=== PATIENT | male | born 1945 | race Caucasian/White ===

== ENCOUNTER 2016-09-22 07:28 | Day surgery (SDC) | payer MEDICARE, OTHER ==
[~2016-09-22] VITALS: Ht 188 cm; Wt 93.4 kg
[~2016-09-22 07:28] MED LIST: ALBU8.5H2 INHALATION; ASPI-973 PO; BENZ100C8 PO; CARV12.52 PO; CHOL3000 PO; CYAN500T53 SL; FUR20 PO; LISI-571 PO; MULT-1018 PO; RITUX IV; SPIR25TA PO; Sodium Chloride LOK Flush 10 mL Syringe IV PRN; fentaNYL-PF 50 mCg/mL 2 mL Inj IVPUSH PRN
[2016-09-22 08:02] VITALS: BP 109/66; PULSE 66; RESP 17; O2SAT 98
[2016-09-22] MEDS: 0.9% Sodium Chloride 1,000 ML IV SCH ×2 (08:53→09:12)
[2016-09-22 09:27] VITALS: BP 104/57; PULSE 61; RESP 16; O2SAT 97
[2016-09-22 09:37] VITALS: BP 103/60; PULSE 59; RESP 16; O2SAT 97
[2016-09-22 09:42] VITALS: BP 104/66; PULSE 62; RESP 16; O2SAT 98
--- NOTE | 2016-09-22 10:21 | ENDO ---
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 PROCEDURE: 1. Colonoscopy. 2. Terminal ileal intubation. 3. Biopsies of terminal ileum. SURGEON: Ethan Greer MD. INDICATIONS: The patient is a 71-year-old man who last year had terminal ileal intussusception. Biopsies of the terminal ileum revealed mantle cell lymphoma. He has been undergoing treatment. The intussusception has resolved but he continues to have some thickening of the terminal ileum, as well as an elevated SUV on his PET scan, although it is significantly reduced from his initial PET scan. After discussing options with the patient, it was elected to proceed with a colonoscopy with plans to intubate the terminal ileum. FINDINGS: The scope was advanced to the cecum and into the terminal ileum. Gaining access to the terminal ileum was difficult. One side of the terminal ileum showed edematous mucosa. There was some fibrin on the mucosa suggesting some ulceration or at least inflammation. Visualization of that area was limited. I did do biopsies. Keeping the scope within the terminal ileum was difficult. I was hoping to get 8-10 biopsies. The scope popped back into the colon after obtaining only four biopsies, and I was unable to reintubate it. The colon, including retroflexed views of the rectum, was normal. DESCRIPTION OF PROCEDURE: The procedure and sedation plan was discussed with the patient and nursing staff, and a procedural time-out was held. He received 4 mg of Versed and 75 mcg of fentanyl. After the scope reached the cecum, the total withdrawal time was 20 minutes 44 seconds. The terminal ileum was intubated and biopsies obtained with results as discussed above. As stated above, I was attempting to get 8-10 biopsies but after four biopsies the scope popped back into the cecum and I could not reintubate the terminal ileum. The scope was then withdrawn, with the colon as described above, and retroflexed views of the rectum were obtained. There were no apparent complications. There was no bleeding. IMPRESSION: 1. His terminal ileum is not normal. 2. There were signs of inflammation. 3. The biopsies may only show an inflammatory response.
--- NOTE | 2016-09-27 08:18 | PATH ---
SURGICAL PATHOLOGY Attending Physician:Saba Roque CASE STATUS: Signed Out PATIENT NAME: MICHELLE KAPADIA PID: [id number] : 1945 DATE COLLECTED:09/22/2016 17:29 SPECIMEN: Ileum, Biopsy CLINICAL HISTORY: A: TERMINAL ILEUM BIOPSY FINAL DIAGNOSIS: Terminal Ileum, Biopsy: Mantle cell lymphoma with a high proliferative index (50%). ICD10: C85.9 GROSS DESCRIPTION: The specimen is received in one formalin filled container labeled with the patient's name, sublabeled "terminal ileum" and consists of 4 portions of tissue which aggregate to 0.4 x 0.4 x 0.2 CM. The specimen is entirely submitted in one cassette. 09/22/2016 [facility] MICRO DESCRIPTION: Sections from the terminal ileum show ulcerated mucosa with an atypical diffuse infiltrate of lymphocytes which are of intermediate size and which are associated with frequent mitotic figures. Given the patient's history of mantle cell lymphoma, immunohistochemistry is performed in order to confirm the morphologic impression of persistent/recurrent mantle cell lymphoma. IMMUNOHISTOCHEMISTRY: CD5:Dim positivity on most atypical lymphocytes. CD3:Negative in atypical lymphocytes. Cyclin D1:Uniformly positive in atypical lymphocytes: Ki-67: 50% positive labeling index. CD20:`Variably positive staining in most atypical lymphocytes. CD79A: Uniformly positive in atypical lymphocytes. ICD-9 CODES: CPT CODES: 1: 99022, 90389, 95310, 72530, 98542, 87075, 22807 Electronically Signed Out Gatito Carvalho MD, PhD [facility] Pathology [facility] [address], [place] [address] Technical component performed at [facility], [facility] [address], [place], [address]
== END 2016-09-22 23:59 | disposition home or self-care (01) ==
LOC: END 07:28
PROVIDERS: ATTEND Surgery
DX: C83.13 Mantle cell lymphoma, intra-abdominal lymph nodes (principal); I50.9 Heart failure, unspecified; I42.9 Cardiomyopathy, unspecified; I10 Essential (primary) hypertension; D69.6 Thrombocytopenia, unspecified
CPT/HCPCS: 45380; 88305; 88341; 88342; 88360; 99153; G0500; J2250; J7030

== ENCOUNTER 2016-12-26 13:21 | Inpatient (IN) | payer MEDICARE, OTHER ==
[~2016-12-26] VITALS: Ht 188 cm; Wt 97.5 kg
[~2016-12-26 13:21] MED LIST changes: -ALBU8.5H2 INHALATION; -BENZ100C8 PO; -LISI-571 PO; -Sodium Chloride LOK Flush 10 mL Syringe IV PRN; -fentaNYL-PF 50 mCg/mL 2 mL Inj IVPUSH PRN
[2016-12-26 13:25] VITALS: BP 125/80; PULSE 94; RESP 16; O2SAT 98
--- NOTE | 2016-12-26 13:58 | ED.REPORT ---
HPI-Abd Pain M 40 and Over Date of Service Dec 26, 2016 ED Provider: Pernell Florence MD Pt is a 71 y/o male w/ a hx of Non-Hodgkin's lymphoma, mantle cell lymphoma, chronic intussusception, chemotherapy induced nonischemic cardiomyopathy, HTN, presenting to the ED c/o abdominal pain and distention onset 2 weeks ago. Pt c/ o associated anorexia, mucousy diarrhea, reflux. Pt denies fever, vomiting. He has never required paracentesis in the past. He called his oncologist Dr. Barreto 's office today who recommended he be seen in the ED for evaluation and likely admission. Dr. Barreto was planning on seeing the patient while he was in the ED. CT oral contrast of chest/abdomen/pelvis taken 12/22/16 was interpreted as below: IMPRESSION: 1. Marked interval progression of disease compared to 12.5.16. 2. Several new right lung masses, presumably reflecting pulmonary lymphoma. 3. Multiple new peritoneal masses, as well as peritoneal nodularity and ascites , indicating peritoneal carcinomatosis. 4. Intrahepatic masses are present, consistent with lymphoma. Nursing Notes Stated Complaint: ABDOMINAL PAIN Chief Complaint: General Complaint Nursing Notes Reviewed: Yes Allergies: Coded Allergies: No Known Drug Allergies (Verified Allergy, Unknown, 12/26/16) Scheduled Aspirin (Aspirin) 81 Mg Tablet 81 MG PO BIDWM Carvedilol (Carvedilol) 12.5 Mg Tablet 12.5 MG PO BID Cholecalciferol (Vitamin D3) (Vitamin D3) 3,000 Unit Tablet 3,000 UNIT PO HS Cyanocobalamin (Vitamin B-12) (Vitamin B-12) 500 Mcg Tab.subl 500 MCG SL DAILY Furosemide (Furosemide) 20 Mg Tab 20 MG PO DAILY Multivitamin (Multi Vitamin Daily) 1 Each Tablet 1 EACH PO HS Rituximab (Rituxan) 100 Mg/10 Ml Vial 100 MG IV EVERY 2 MONTHS Spironolactone (Aldactone) 25 Mg Tablet 12.5 MG PO DAILY General Time Seen by MD: 13:50 Chief Complaint Abdominal pain Hx Obtained From: Patient Arrived By: Walk-in Sudden in Onset?: No Onset Occurred: More than a week ago... 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 Physical Exam Initial Vital Signs Vital Signs (First) Date Time Temp Pulse Resp B/P Pulse Ox O2 Delivery O2 Flow Rate FiO2 12/26/16 13:25 36.0 94 16 125/80 98 Room Air Initial VS: Reviewed, Vital signs normal Head / Eyes: Atraumatic, Normocephalic, PERRL ENT: Mucous membranes moist, Conjunctiva normal, No scleral icterus Neck: Supple, Full range of motion Neurologic: Alert, Oriented, Nonfocal Psychiatric: Mood/affect normal, Behavior normal, Normal thought content General/Constitutional: Awake, Alert, No acute distress, Cooperative Appearance / Presentation: Positive: Cachectic Chronically ill-appearing cancer patient Respiratory / Chest: Atraumatic, Breath sounds NL, Breath sounds = bilat, No respiratory distress, No rales, No rhonchi, No wheezing, No retractions, No stridor, No chest tenderness, No chest wall deformity, No crepitus Cardiovascular: Heart rate NL, Regular rhythm, Heart sounds NL, No gallop, No murmurs, No rubs, Cap refill not delayed, Peripheral circulation NL Abdomen: Atraumatic, Soft, Non-tender, No guarding Protuberant abdomen Back: Full range of motion, Painless range of motion Skin: No rash, Warm Waxy appearing skin Interpretation & Diagnostics Interpretation & Diagnostics: US abdomen: IMPRESSION: Several, superficial inferior pelvic peritoneal masses, several which are amenable to sonographically directed percutaneous biopsy. Dictated by: Isra LOBATO Interpreted: Rubin Garza MD on 12/26/2016 at 16:08 Transcribed by: SAMANTHA on 12/26/2016 at 16:09 Lab Results Interpretation Result Diagram: 12/26/16 1435 12/26/16 1435 Test 12/26/16 14:35 12/26/16 14:40 12/26/16 16:19 White Blood Count 16.2th/mm3 (3.8-10.1) Red Blood Count 3.67mil/mm3 (4.40-5.80) Hemoglobin 10.1g/dL (13.8-17.2) Hematocrit 32.8% (41.0-50.0) Mean Corpuscular Volume 89.4fL (81-100) Mean Corpuscular Hemoglobin 27.5pg (27.0-35.0) Mean Corpuscular Hemoglobin Concent 30.8% (32.0-37.0) Red Cell Distribution Width 18.7% (12.3-15.4) Platelet Count 635bil/L (150-400) Neutrophils (%) (Auto) 78% (40-74) Lymphocytes (%) (Auto) 7% (14-46) Monocytes (%) (Auto) 14% (4-12) Eosinophils (%) (Auto) 0% (0-5) Basophils (%) (Auto) 0% (0-3) Band Neutrophils % 1% (1-5) Sodium Level 135mEq/L (134-144) Potassium Level 4.7mEq/L (3.5-5.2) Chloride Level 98mEq/L (97-108) Carbon Dioxide Level 18mmol/L (18-29) Blood Urea Nitrogen 41mg/dL (8-27) Creatinine 1.97mg/dL (0.76-1.27) Estimat Glomerular Filtration Rate 36mL/min (>59) Glucose Level 99mg/dL (60-99) Lactic Acid Level 1.3mmol/L (0.4-2.0) Calcium Level 12.9mg/dL (8.5-10.1) Total Bilirubin 0.4mg/dL (0.0-1.2) Aspartate Amino Transf (AST/SGOT) 94U/L (0-50) Alanine Aminotransferase (ALT/SGPT) 15U/L (0-44) Alkaline Phosphatase 80U/L (25-160) Troponin T 0.013ug/L (0.0-0.011) Total Protein 5.2g/dL (6.4-8.4) Albumin 3.1g/dL (3.4-5.0) Prothrombin Time 11.3sec (8.1-12.5) Prothromb Time International Ratio 1.05ratio Hold Ko Top Tube Received (Received) ECG Interpretation ECG Interpretation: Sinus rhythm rate 90 LBBB Time: 15:43 Interpreted by: ED physician Normal ECG Interpretation: No acute ischemic changes X-Ray Chest Interpretation Chest Xray Interpretation: IMPRESSION: Linear right basilar opacities, suggestive of atelectasis and trace effusion. Dictated by: Mya Monroe M.D. on 12/26/2016 at 16:31 Approved by: Mya Monroe M.D. on 12/26/2016 at 16:32 View: Portable, 1 view Interpretation / Wet Read by: Interpret - Radiologist Re-Eval/Medical Decision Med Decision/Clinical Course I opted not to be more aggressive with the fluids because of his worsening renal insufficiency. I decided to await input from Dr. Barreto regarding hypercalcemia management. Source of Hx: Old records Time of Eval: 15:46 Re-Evaluation/Progress Note: Pt rechecked. Informed pt of need for admission for further evaluation. Pt understands and agrees with need for admission. All questions addressed. Consultation #1: Referral / Consult Name: Kleber Chew MD Call Returned at: 14:30 Therapist'S Assistant: Will see patient, Agrees with eval, Agrees with plan Note: Will see patient while admitted. Consultation #2: Referral / Consult Name: Matt Mann MD Consulted With: Hospitalist Call Returned at: 16:38 Therapist'S Assistant: Will see patient, Agrees with eval, Agrees with plan, Accepts admit Counseled Regarding: Diagnosis, Lab results, Need for admission Discharge & Departure Primary Impression: Non-Hodgkin lymphoma Non-Hodgkin lymphoma type: unspecified type Lymphoma site: unspecified region Qualified Code: C85.90 - Non-Hodgkin lymphoma, unspecified, unspecified site Additional Impressions: Acute renal insufficiency Abdominal mass Abdominal location: unspecified location Qualified Code: R19.00 - Intra- abdominal and pelvic swelling, mass and lump, unspecified site Hypercalcemia Abdominal pain Abdominal location: unspecified location Qualified Code: R10.9 - Unspecified abdominal pain Disposition: ADMITTED TO HOSPITAL Vital Signs - All Vital Signs Date Time Temp Pulse Resp B/P Pulse Ox O2 Delivery O2 Flow Rate FiO2 12/26/16 15:59 90 18 122/73 97 Room Air 12/26/16 13:25 36.0 94 16 125/80 98 Room Air )( All Prior VS Reviewed: Yes Condition: Stable Referrals: Govind Olmedo MD (PCP) Scribe Attestation Portions of this note were transcribed by Pavel Cervantes. I, Dr. Florence personally performed the history, physical exam and medical decision-making; I reviewed and confirmed the accuracy of the information in the transcribed note. Signed by Luis Armando Blount, 12/26/16 - 1500 copies to: Govind Olmedo MD, Kirk H MD Dec 26, 2016 13:58 PAVEL CERVANTES Dec 26, 2016 14:08
[2016-12-26 14:46] LABS: Mean Corpuscular Hemoglobin 27.5 pg (27.0-35.0); Mean Corpuscular Volume 89.4 fL (81-100); Platelet Count 635 bil/L (150-400)
[2016-12-26 15:01] LABS: INR 1.05 ratio
[2016-12-26 15:03] LABS: BASOPHILS % (AUTO) 0 % (0-3); EOSINOPHILS % (AUTO) 0 % (0-5); MONOCYTES % (AUTO) 14 % (4-12); NEUTROPHILS % (AUTO) 78 % (40-74)
[2016-12-26 15:59] VITALS: BP 122/73; PULSE 90; RESP 18; O2SAT 97
--- NOTE | 2016-12-26 16:10 | DRSVH ---
PROCEDURE: US ABDOMEN, LIMITED ([id number]) INDICATIONS: abd pain, distention, new mass TECHNIQUE: Real-time focused scanning was performed of the abdomen, with image documentation. COMPARISON: [facility], CT, CT CHEST ABD PELVIS WO CON, 12/22/2016, 8:09. FINDINGS: Ultiple solid mass is seen within the inferior pelvis as was noted on recent CT scan, sever al which are amenable to sonographically directed percutaneous biopsy. Mild amount of ascites is red emonstrated. IMPRESSION: Several, superficial inferior pelvic peritoneal masses, several which are amenable to son ographically directed percutaneous biopsy. Dictated by: Isra LOBATO Interpreted: Rubin Garza MD on 12/26/2016 at 16:08 Transcribed by: SAMANTHA on 12/26/2016 at 16:09 Approved by: Rubin Garza M.D. on 12/26/2016 at 17:08
--- NOTE | 2016-12-26 16:34 | DRSVH ---
PROCEDURE: X-RAY CHEST ONE VIEW, PORTABLE ([id number]) INDICATIONS: SHORTNESS OF BREATH TECHNIQUE: One view of the chest was acquired. COMPARISON: [facility], CR, XR CHEST 2VW, 07/07/2016, 11:03. FINDINGS: Surgical changes and devices: Right port is present. Lungs and pleura: No pleural effusions or pneumothorax. Linear opacities are present in the right b ase, with trace effusion. Mediastinum: Mediastinal contours appear normal. Heart size is normal. Bones and chest wall: No suspicious bony lesions. Overlying soft tissues appear unremarkable. IMPRESSION: Linear right basilar opacities, suggestive of atelectasis and trace effusion. Dictated by: Mya Monroe M.D. on 12/26/2016 at 16:31 Approved by: Mya Monroe M.D. on 12/26/2016 at 16:32
[2016-12-26] MEDS ORDERED: Ondansetron 2 mg/mL 2 mL Inj IVPUSH PRN (16:50)
[2016-12-26] MEDS ORDERED: Alum-Mag Hydrox-Simeth 30 mL Suspension PO PRN (16:50)
[2016-12-26] MEDS ORDERED: Polyethylene Glycol (PEG) 17 Gm Powder PO PRN (17:20)
[2016-12-26] MEDS: 0.9% Sodium Chloride 1,000 ML IV SCH ×2 (17:27→19:55)
[2016-12-26] MEDS ORDERED: ZOLEDRONIC ACID IV ONE (17:45)
[2016-12-26] MEDS ORDERED: SODIUM CHLORIDE 0.9% IV ONE (17:45)
[2016-12-26] MEDS ORDERED: IVIG IV (17:55)
--- NOTE | 2016-12-26 17:56 | NUR ---
admit pt is brought to the [facility] via [facility] from the ED. Pt was able to transfer himself into the hospital bed. pt denies pain/distress and SOB. Admit nurse going over medications. Tele started
[2016-12-26 18:02] VITALS: PULSE 91
[2016-12-26] MEDS ORDERED: 0.9% Sodium Chloride 1,000 ML IV ONE (18:10)
--- NOTE | 2016-12-26 18:20 | PCM.HPMED ---
Subjective Date of Service Dec 26, 2016 Primary Provider: Admitting Physician: Matt Mann MD Primary Care Physician: Govind Olmedo MD Attending Physician: Matt Mann MD Admit Status: From the Emergency Department, Admit to Blue Team Chief Complaint: Progressive generalized weakness/3 weeks Progressive abdominal distention/2 weeks History of Present Illness: Dorian is unfortunate 71-year-old gentleman with past medical history of atypical lymphoblastic leukemia diagnosed in 1999 and underwent R-CHOP chemotherapy and went into remission with subsequent diagnosis of chemotherapy related non ischemic cardiomyopathy with ejection fraction of 35-40%. 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 In 2015 he presented with intussusception and was diagnosed with mantle cell lymphoma involving terminal ileum. He was getting chemotherapy with Dr. Barreto and responding. He has been progressively feeling fatigued/generalized weakness for the last 3 weeks. He also noted that he is having progressive abdominal distention for the last 2 weeks. He was evaluated by Dr. Barreto and on repeat imaging was found to have dramatic deterioration with many large new masses in the abdominal cavity; one being about 9 cm in size in the central anterior pelvis; another one in the higher right hemipelvis; and some retroperitoneal nodes and thickening of the bowel as well as new lung mass in the right hilar area.He also was noted to have progressively worsening SHANNAN and hypercalcemia. He was given IV fluids at cancer Center and outpatient biopsy of new masses was being arranged . He continued to have the above symptoms and worsening SHANNAN and hypercalcemia which prompted referral to ED Denies fever. Denies cough ED course: Unremarkable vitals, cachectic, distended abdomen, WBC 16.2, hemoglobin 10.1, sodium 135, K4.7, bicarbonate 18, creatinine 1.97, no history of ckd, calcium 12.9, albumin 3.1, corrected calcium 13.6. IV fluid normal saline at 150 mL/h started. Bolus avoided due to history of CHF. I spoke with Dr. Barreto , added uric acid due to the concern of TLs and is elevated at 14.3. Started on allopurinol and Zometa. Gave bolus of 1 L normal saline of note, patient's son Willie had vasovagal syncope when I and patient discussed about CODE STATUS. Patient states this has happened before. Review of Systems: Comprehensive review of systems performed, pertinent positives and negatives included in history of present illness Allergies Coded Allergies: No Known Drug Allergies (Verified Allergy, Unknown, 12/26/16) Home Medications Aspirin (Aspirin) 81 Mg Tablet 81 MG PO BIDWM Carvedilol (Carvedilol) 12.5 Mg Tablet 12.5 MG PO BID Cholecalciferol (Vitamin D3) (Vitamin D3) 3,000 Unit Tablet 3,000 UNIT PO HS Cyanocobalamin (Vitamin B-12) (Vitamin B-12) 500 Mcg Tab.subl 500 MCG SL DAILY Furosemide (Furosemide) 20 Mg Tab 20 MG PO DAILY Multivitamin (Multi Vitamin Daily) 1 Each Tablet 1 EACH PO HS Rituximab (Rituxan) 100 Mg/10 Ml Vial 100 MG IV EVERY 2 MONTHS Spironolactone (Aldactone) 25 Mg Tablet 12.5 MG PO DAILY PMH Atypical lymphoblastic leukemia in 1999, recurrence in 2011 mantle cell lymphoma of terminal ileum 2015 nonischemic cardiomyopathy due to chemotherapy Hypertension JAk2 negative essential thrombocytosis Surgical History Right knee replacement Port insertion Rhinoplasty Family History Mother at age 58, she has history intracranial bleeding Father at age 80 due to emphysema Paternal uncle has history of leukemia Social History Hx Alcohol Use: No Hx Substance Use: No Hx Tobacco Use: No Smoking Status: Never Smoker Exam Vital Signs Vital Sign - Last Date Time Temp Pulse Resp B/P Pulse Ox O2 Delivery O2 Flow Rate FiO2 12/26/16 18:02 91 12/26/16 15:59 18 122/73 97 Room Air 12/26/16 13:25 36.0 Exam Gen. Cachectic patient is lying comfortably in hospital bed HEENT: Dry buccal mucosa, Head is normocephalic atraumatic, Pupils equal and reactive, extraocular movements intact, Lungs clear to auscultation bilaterally Heart regular rate and rhythm without murmurs gallops or rubs Abdomen distended with irregular feeling masses Extremities pulses are present dorsalis pedis posterior tibialis and radial. tSkin is warm and dry there are no rashes, Psych alert and oriented to person place and time Neuro cranial nerves II through XII are grossly intact Lymph: There is no lymphadenopathy appreciated in the cervical supra infraclavicular regions : no gamez Lab and Diagnostics Result Diagram: 12/26/16 1435 12/26/16 1435 X-Rays, CTs and MRIs PROCEDURE: CT CHEST, ABDOMEN AND PELVIS WITHOUT CONTRAST ([id number]) INDICATIONS: LYMPHOMA, ABDOMINAL PAIN IMPRESSION: 1. Marked interval progression of disease compared to 12.5.16. 2. Several new right lung masses, presumably reflecting pulmonary lymphoma. 3. Multiple new peritoneal masses, as well as peritoneal nodularity and ascites , indicating peritoneal carcinomatosis. 4. Intrahepatic masses are present, consistent with lymphoma. Dictated by: Kayla Bartholomew M.D. on 12/22/2016 at 9:50 Assessment & Plan Dorian is unfortunate 71-year-old gentleman with past medical history of a typical lymphoblastic leukemia,mantle cell lymphoma of terminal ileum , nonischemic cardiomyopathy due to chemotherapy.Hypertension,JAk2 negative essential thrombocytosis # Acute kidney failure -Due to hypercalcemia of malignancy and suspected TLS -Bolus 1 L normal saline then 150ml/h -Keep home Lasix 20 mg, hold Aldactone -zometa 3mg x1 -f/u CMP in am -allopurinol 300mg bid -Nephrology consult in am -Discussed with oncology # Acute hypercalcemia -Management as above # Acute TLS -Management as above # Rapidly progressing lymphoma, suspected transformation -Dr Barreto will arrange biopsy of pelvic mass on current admission -Chemotherapy on hold # JAK2 essential thrombocytosis -Continue aspirin 81 mg by mouth twice a day # nonischemic cardiomyopathy due to chemotherapy -EF 35-40% -will watch out for fluid overload -Continue carvedilol and Lasix, hold Aldactone -BNP 1300 Patient admitted under inpatient status with expected length of stay > 2 midnights for severity of present symptoms, complexities of treatment plan and risk for adverse events Full code,names his son Willie as POA ,tel [phone] Time spent 70 minutes copies to: Govind Olmedo MD; Kleber Chew MD, Melaku MD Dec 26, 2016 18:20
[2016-12-26 19:21] VITALS: BP 131/76; PULSE 92; RESP 20; O2SAT 95
--- NOTE | 2016-12-26 19:36 | CCS NOTE ---
[facility] [address] [place] [id number] MEDICAL ONCOLOGY OFFICE NOTE PATIENT: MICHELLE KAPADIA : 1945 MR#: [id number] DATE: 12/26/2016 JOB ID: [id number] DATE: 12/26/2016 HISTORY OF PRESENT ILLNESS: The patient is a 71-year-old gentleman whom I saw on Monday with relapsed likely lymphoma with multiple new masses in his abdomen and is in process of workup with an ultrasound-guided biopsy that was being planned for this week. He was having increasing worsening of renal function and hypercalcemia most likely due to malignancy. He has a history of previous lymphoma. Details are summarized in my office note of December 23, 2016. He was supposed to come back today for additional evaluation of his lab studies, but he did not show up. He was contacted and was very weak and he was advised to come to the ED and call 911. I have spoken with the ED physician, and the patient had abdominal pain in the mid to lower abdomen likely due to the mass lesion seen on the CT scan of December 23. Of note, the CT scan was intentionally done without IV contrast since his creatinine was rising. He is afebrile but appears very weak. O2 sat 97%. Pale. Blood pressure 122/73. Abdomen is distended but is not rigid. Trace ankle edema. LABORATORIES: Show a creatinine of 1.97 increased from 1.65 on Monday and 1.42 on December 21. BUN is increasing as well with a BUN/creatinine ratio of 2. Calcium had further increased to 12.9 with albumin level of 3.1 and therefore his corrected calcium is probably around 13.5. ProBNP is 1300. 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 He has been on maintenance therapy with Velcade and rituximab, but has been noticing a severe deterioration of his functional status and worsening abdominal pain, increasing hypercalcemia and renal dysfunction over the past two weeks. Urgent CT scan of last , December 22, showed a large number of new masses as discussed in my office note of December 23. He is being admitted to manage his electrolyte and kidney abnormalities and further expedite the biopsy. He had an ultrasound that documented that this anterior abdominal mass in the central pelvis is easily visible on ultrasound and could be percutaneously biopsied which was planned for this week. I spoke with the hospitalist team and recommended that the patient be treated with one dose of Zometa at the reduced dose of 3 mg IV over 30 minutes to treat his hypercalcemia of malignancy. In addition, continuous hydration and check of uric acid to rule out tumor lysis. I would appreciate to obtain the ultrasound-guided percutaneous biopsy in the next day or two while he is in the hospital to expedite the diagnosis. I am concerned that he might have a transformation to an aggressive lymphoma given the rapidity of change. Allopurinol can be started empirically at 300 mg daily after uric acid has been checked and if it was elevated. I spoke also with his son. He is planned to be switched to next line of therapy with the new oral agent, ibrutinib, and the prescription has been already sent to his specialty pharmacy for preauthorization through his insurance.
[2016-12-26] MEDS: Alum-Mag Hydrox-Simeth 30 mL Suspension PO PRN (19:54)
[2016-12-26 20:00] VITALS: PULSE 96
[2016-12-26] MEDS: Ondansetron 2 mg/mL 2 mL Inj IVPUSH PRN (20:04)
[2016-12-27] VITALS (17 sets, daily range): BP systolic 103–138; BP diastolic 65–95; PULSE 20–95; RESP 18–21; O2SAT 94–96
[2016-12-27 00:09] LABS: APPEARANCE,URINE CLEAR (CLEAR,HAZY); COLOR,URINE DARK YELLOW (YELLOW)
[2016-12-27 00:10] LABS: ICTOTEST,URINE POSITIVE (Negative); OCCULT BLOOD,URINE NEGATIVE (NEGATIVE); UROBILINOGEN,URINE NORMAL (NORMAL)
[2016-12-27] MEDS: 0.9% Sodium Chloride 1,000 ML IV SCH (02:29)
[2016-12-27] MEDS: Alum-Mag Hydrox-Simeth 30 mL Suspension PO PRN (02:35)
--- NOTE | 2016-12-27 05:57 | NUR ---
NOC PT alert and oriented. [place] in R ear. V/S WNL. PT abdomen is quite distended with hypo BS noted. PT had one episode of emesis that was light brown in color. THere was no actual nausea associated with it. PT has not been able to tolerate fluids as it causes him heartburn and upper gi pain each time. He is able to tolerate IV fluids. PT only voided once. URine isak and concentrated. R port is accessed and NS infusing at 150ml/h. PT has not ambulated as he reports that he is very weak. Declines any pain meds and has taken only antacids with some relief. PT in NSR with IVCD. PT noted to be a little dyspneic while trying to lay in bed due to the size of his abdomen. Will CTM.
[2016-12-27 06:03] LABS: Mean Corpuscular Hemoglobin 27.7 pg (27.0-35.0); Mean Corpuscular Volume 90.8 fL (81-100); Platelet Count 509 bil/L (150-400)
[2016-12-27 06:20] LABS: BASOPHILS % (AUTO) 0 % (0-3); EOSINOPHILS % (AUTO) 0 % (0-5); MONOCYTES % (AUTO) 15 % (4-12); NEUTROPHILS % (AUTO) 79 % (40-74)
[2016-12-27 06:31] LABS: Magnesium 2.3 mg/dL (1.6-2.6); Phosphorus 4.7 mg/dL (2.5-4.9)
[2016-12-27] MEDS ORDERED: 0.9% Sodium Chloride 1,000 ML IV ONE (07:40)
--- NOTE | 2016-12-27 10:10 | NUR ---
Pt off floor to [facility] for US guided Biopsy at 1010. Access Hep locked per IV therapy, tele notified.
[2016-12-27] MEDS ORDERED: HepLOK Flush 100 unit/mL 5 mL Inj IVFLUSH PRN (10:15)
[2016-12-27] MEDS: 0.9% Sodium Chloride 250 ML IV SCH (10:15)
[2016-12-27] MEDS ORDERED: Sodium Chloride LOK Flush 10 mL Syringe IVFLUSH PRN ×2 (10:15)
--- NOTE | 2016-12-27 10:38 | CONS ---
[address] [address] CONSULTATION REPORT PATIENT: MICHELLE KAPADIA : 1945 MR#: [id number] ADMIT: 12/26/2016 JOB ID: [id number] CORRECTED REPORT: DATE OF SERVICE: 12/27/2016 HISTORY: The patient is a rather unfortunate, 71-year-old, white male, who was admitted to [facility] for acute kidney injury, hypercalcemia, and hyperuricemia. Renal consultation is being sought for further management and evaluation of his acute kidney injury. The patient has an extremely complicated hematological history, including two separate types of lymphomas, along with monoclonal gammopathy. He has undergone several chemotherapy rounds. However, has not had any chemotherapy in about a year. In discussing the case with Dr. Barreto, he states that he was doing well until approximately three weeks ago when he began to have increasing abdominal girth, general malaise, and increasing BUN and creatinine. He underwent a noncontrast CT last week, and was found to have diffuse tumor growth throughout his abdomen and in his lungs. He was admitted to [facility] yesterday and, at the time of admission, was found to have a sodium of 135, potassium 4.7, chloride 98, bicarb 20. BUN and creatinine were 41 and 1.97. His calcium was 12.9, with uric acid of 14.1. He was initially treated with IV fluids, along with intravenous furosemide. Unfortunately, his creatinine increased today to a level of 2.48. His calcium is at 12.2 today and his uric acid has come down a bit at 13.3. His blood pressures in the last 24 hours have been in the low 100-120 range. He is making some urine. I reviewed the renal ultrasound, and he has a distended bladder with approximately 290 mL of urine. There is no evidence of a hydronephrosis. He denies a history of any prior renal problems. There is no history of any prior hematuria, proteinuria, recurrent urinary tract infections, or recent use of nonsteroidal anti-inflammatories. There is no history of diabetes. He does have a history of cardiomyopathy and chronic congestive heart failure. PAST MEDICAL HISTORY: Is significant for mantle cell lymphoma of the terminal ileum, for which he developed an intussusception which was treated with chemotherapy, with resolution. He also has a history of atypical lymphoblastic leukemia dating back to 1999, with recurrence in 2012. He also has a history of nonischemic cardiomyopathy secondary to chemotherapy. There is a history of hypertension. He also has a history of a JAK2 essential thrombocytosis. PAST SURGICAL HISTORY: Significant for bilateral knee replacement, rhinoseptoplasty, and insertion of a chemotherapy port. ALLERGIES: He is not allergic to any food or any medication. MEDICATIONS: At the time of admission, include: Aspirin, carvedilol, cholecalciferol, furosemide, vitamins, rituximab, and spironolactone. SOCIAL HISTORY: He denies use of alcohol, tobacco, or illicit drugs. He states prior to three weeks ago he was in good health and able to perform his activities of daily living. FAMILY HISTORY: Remarkable for an intracranial hemorrhage, emphysema, and an uncle with lymphoma. REVIEW OF SYSTEMS: Otherwise, he denies any recent chest pain, shortness of breath, cough, but has had some nausea and vomiting. PHYSICAL EXAMINATION: Revealed a pale, somewhat cachectic-appearing, 71-year-old, white male, who was alert and oriented x3, in no distress at time of my evaluation. HEENT examination is remarkable for pale sclerae and bitemporal wasting. Neck is supple without adenopathy, thyromegaly or jugular venous distention. Lungs showed some somewhat diminished breath sounds bilaterally, but otherwise were clear. Heart was regular in rhythm with a soft systolic murmur. Abdomen was moderately distended, with tympany noted and free fluid wave was also noted. His abdomen was non-tense and did not show any evidence of any tenderness, rebound, guarding, masses or hepatosplenomegaly. Extremities did not show any evidence of any clubbing, cyanosis, or edema. Skin turgor is good. There is no evidence of any rashes. LABORATORY EXAMINATION: As noted above. This morning, his sodium is 140, potassium 4.8, chloride of 104, bicarb of 18, BUN and creatinine were 48 and 2.48. Uric acid this morning was 13.3. Calcium was 12.2. Phosphorus is 4.7, albumin was 2.9, and his liver function study was remarkable only for an AST which is elevated at 87. Urinalysis showed a specific gravity of 1.025, pH was 5, bilirubin was small, and microscopic was unremarkable. This morning, his white count is 16,000, hemoglobin 9.0, hematocrit 29.5, red cell indices were normal. Platelet count was mildly elevated at 509, and differential showed 79 segs with 1 metamyelocyte. IMPRESSION: 1. Acute kidney injury secondary to tumor lysis syndrome. 2. Dehydration. 3. Hypercalcemia. 4. Hyperuricemia. 5. Metabolic acidosis. RECOMMENDATION: I would like to review his ultrasound with the radiologist and see if we need to do a paracentesis. I would also recommend putting a Barcenas catheter in him to decompress his bladder. I would also like to change his maintenance IV fluid to half-normal saline with 1 amp of sodium bicarbonate to run at 70 mL/h, and I would like to continue his allopurinol and cautiously give him Lasix. Obviously, we need to closely follow his lab. Once again, I would like to thank you for allowing me to participate in the care of this rather unfortunate patient. I will be following him closely with you. Corrected by FREDDY 01/26/17 at 2:11pm DOS
[2016-12-27] MEDS ORDERED: RASBURICASE IV ONE (11:15)
[2016-12-27] MEDS ORDERED: SODIUM CHLORIDE 0.9% IV ONE (11:15)
--- NOTE | 2016-12-27 11:35 | CCS NOTE ---
[facility] [address], [address] [address] MEDICAL ONCOLOGY OFFICE NOTE PATIENT: MICHELLE KAPADIA : 1945 MR#: [id number] DATE: 12/26/2016 JOB ID: [id number] DATE: 12/27/2016 SUBJECTIVE: The patient has remained afebrile. Has been given IV fluids overnight and, lab studies after the ER visits were additionally checked per my request, to evaluate his uric acid, has turned back to be significantly elevated at 14.1. Allopurinol was started yesterday by the hospitalist team. The patient's creatinine has further increased to 2.48 from 1.97 yesterday, and 1.6 on Monday. PHYSICAL EXAMINATION: On exam, he has remained afebrile. Blood pressure is 120/72, O2 sat 96% on room air. His urine output has been relatively small with 225 cc overnight. ASSESSMENT AND PLAN: A 71-year-old gentleman with suspected relapsed lymphoma in the form of possibly a transformation to a higher risk and more aggressive lymphoma given the drastic changes and development of multiple large masses in a short period of time in his abdomen. There is also a lung lesion. Details summarized in my notes of yesterday and December 23. I believe he is developing a spontaneous tumor lysis syndrome causing both hypercalcemia of malignancy and severe hyperuricemia of malignancy leading to his renal dysfunction, as his creatinine continues to deteriorate over the past week despite of hydration. I contacted Dr. Mann of the [facility] hospitalist team and discussed that requesting initiation of alkalinization of the urine by adding sodium bicarb to his fluids with 1-2 amps of sodium bicarb combined with half-normal saline to improve the solubility of uric acid. He received one dose of Zometa infusion last night in the ED, per my request, at 3 mg, which should bring his calcium level down in the next 24-48 hours. I spoke with Isra Mahajan and Dr. Bartholomew of Radiology today, facilitating and expediting the ultrasound-guided core biopsy from one of the abdominal masses to send for histology and characterize what kind of lymphoma we are dealing with, given the fact that he has had two separate lymphomas in the past and the clinical behavior of this process appears to be much more aggressive. Given the decline in his urine output, the ongoing tumor lysis and anticipated initiation of treatment which will further increase the uric acid, I am inclined to use single dose of rasburicase at a low dose of 7.5 mg IV, to improve his hyperuricemia and stop the process of renal failure. I have spoken to our Oncology Pharmacy who have been in communication with the hospital pharmacy to try to obtain the medication today. His next line of treatment with ibrutinib orally is being prepared for preauthorization through the [facility]ty [facility]. If we cannot obtain ibrutinib in a timely fashion, we might have to give him salvage chemotherapy, but at this point, will give this another couple of days with supportive care ongoing. TIME SPENT WITH PATIENT: Approximately 1 hour and 10 minutes were spent in counseling and coordination of care.
[2016-12-27] MEDS ORDERED: fentaNYL-PF 50 mCg/mL 2 mL Inj ONE (11:45)
[2016-12-27] MEDS ORDERED: fentaNYL-PF 50 mCg/mL 2 mL Inj IVPUSH ONE (11:55)
--- NOTE | 2016-12-27 11:56 | DRSVH ---
PROCEDURE: US RENAL SONOGRAM INDICATIONS: Leodan ,r/o obstruction TECHNIQUE: Real-time scanning was performed of the kidneys and bladder, with image documentation. COMPARISON: [facility], US, ABDOMEN LTD, 12/26/2016, 14:41. [facility], CT, CT CHEST ABD PELVIS WO CON, 12/22/2016, 8:09. FINDINGS: Kidneys: Kidneys are normal in size. Right kidney measures 11.0 cm long; left kidney measures 12.2 cm long. Right renal cortical thickness is 1.4 cm; left renal cortical thickness is 1.4 cm. Renal c ortical echotexture is normal. No hydronephrosis or nephrolithiasis. No suspicious solid mass lesio ns. Bladder: Pre-void bladder volume is 288 mL. Post-void residual is 190 mL. Pre-void images demonstr ate no intraluminal masses or stones. On pre-void images, and ureteral jets are noted with color Dop pler interrogation. (Of note, ureteral jets may not be detectable in up to 25% of cases due to insuf ficient differences in specific gravity between ureteral and bladder urine). Miscellaneous: No free pelvic fluid. Mild ascites. IMPRESSION: 1. No hydronephrosis. 2. Mild ascites. 3. Moderate 90 cc PVR recorded. Dictated by: Isra Sood RRA Interpreted: Carlene Perez MD on 12/27/2016 at 11:54 Transcribed by: DON on 12/27/2016 at 11:55 Approved by: Carlene Perez MD, PhD on 12/27/2016 at 13:09
--- NOTE | 2016-12-27 12:35 | DRSVH ---
PROCEDURE: US GUIDED BIOPSY ABDOMEN/RETROPERITONEUM INDICATIONS: biopsy of pelvic LN COMPARISON: [facility], US, ABDOMEN LTD, 12/26/2016, 14:41. [facility], CT, CT CHEST ABD PELVIS WO CON, 12/22/2016, 8:09. FINDINGS: After informed consent obtained the midline inferior pelvic mass was examined sonographica lly site chosen for percutaneous biopsy. The skin was prepped and draped in the usual fashion 1% Xylocaine infiltrated from the skin surface d own to the mass lesion. A 19 gauge coaxial needle was introduced into the mass under sonographic dir ection and 4 core biopsies were obtained. Needle was removed a dressing was applied. The patient ex perienced no complications throughout the procedure and was recovered within the special observation unit. The attending physician was present, and personally performed the procedure. IMPRESSION: Successful sonographically guided percutaneous biopsy involving the predominantly solid mass within the inferior pelvis. Dictated by: Isra LOBATO Interpreted: Carlene Perez MD on 12/27/2016 at 12:32 Transcribed by: DON on 12/27/2016 at 12:35 Approved by: Carlene Perez MD, PhD on 12/27/2016 at 13:16
--- NOTE | 2016-12-27 13:30 | NUR ---
transfer to 3021 Pt VSS, some changes noted to systolic upon change of position, less than 20 points, no changes in HR, pt asymptomatic, MD made aware. HCT due to be drawn at 1400, this was reported to Jack SHEPHERD as it is a nurse draw. Pain in abdomen was relieved with prn IV fentanyl. Pt abdomen remains distended as it was when he arrived at [facility] previous to the biopsy.
--- NOTE | 2016-12-27 14:39 | NUR ---
Social Work Note: Initial Assessment Data& Assessment: EMR reviewed. SW met with pt and pt son (Osmin) at bedside to discuss discharge planning, SW role explained. Dorian Leone (Mike) is a 71 year old male admitted on 12/26/2016 for huyperkalmenia, non hodgkins lymphoma. Pt has Medicare and [employer] insurance coverage. Pt sees Dorian Jackson for Primary care. Pt lives on [address] alone and is independent at baseline. Pt does not use any DME at baseline and does not have Home Health or SNF hx. Pt does not have LTC insurance or [facility] service connection. Pt states that he has DPOA paperwork completed at home and will bring in a copy when possible. Pt DPOA is pt other son Willie Leone ([phone]). Pt denies any other needs at this time. SW to continue to follow. Plan: Anticipated discharge home via POV when medically ready. SW to continue to follow for MD recommendations. Pt and pt son deny any other needs at this time. SW to continue to follow if any needs arise. RUTH ANN Betts Addendum: 12/27/16 at 1449 by ROSHNI NORTH Amended: Links added.
[2016-12-27] MEDS: SODIUM BICARB IV SCH (15:00)
[2016-12-27] MEDS: SODIUM CHLORIDE 0.45% IV SCH (15:00)
--- NOTE | 2016-12-27 15:11 | PCM.PNMED ---
Subjective Date of Service Dec 27, 2016 Subjective Continues to have generalized weakness. Kidney function continues to worsen. Received Zometa yesterday corrected calcium 13.1 today from 13.6. Elevated uric acid of 14. 1 L normal saline bolus today. Fluid switched to bicarbonate drip. Continued allopurinol. Gating Rasburicase 7.5 mg today. Underwent ultrasound-guided biopsy of pelvic mass. Exam Vital Signs Vital Sign - Last Date Time Temp Pulse Resp B/P Pulse Ox O2 Delivery O2 Flow Rate FiO2 12/27/16 13:16 36.7 95 18 135/87 94 Room Air Intake and Output 12/26/16 12/26/16 12/27/16 Cumulative From/Thru 15:00 23:00 07:00 12/26/16 13:25 - 12/27/16 06:44 Intake Total 1000 ml 1614 ml 2614 ml Output Total 150 ml 425 ml 575 ml Balance 850 ml 1189 ml 2039 ml Intake Oral 200 ml 200 ml IV Total 1000 ml 1414 ml 2414 ml Output Urine Total 425 ml 425 ml Emesis 150 ml 150 ml Exam Gen. Cachectic patient is lying comfortably in hospital bed HEENT: Dry buccal mucosa, Head is normocephalic atraumatic, Pupils equal and reactive, extraocular movements intact, Lungs clear to auscultation bilaterally Heart regular rate and rhythm without murmurs gallops or rubs Abdomen distended with irregular feeling masses Extremities pulses are present dorsalis pedis posterior tibialis and radial. tSkin is warm and dry there are no rashes, Psych alert and oriented to person place and time Neuro cranial nerves II through XII are grossly intact Lymph: There is no lymphadenopathy appreciated in the cervical supra infraclavicular regions : no fole IVs and Medications Medications Reviewed: Medications were reviewed in detail Lab and Diagnostics Result Diagram: 12/27/16 1410 12/27/16 0540 X-Rays, CTs and MRIs PROCEDURE: CT CHEST, ABDOMEN AND PELVIS WITHOUT CONTRAST ([id number]) INDICATIONS: LYMPHOMA, ABDOMINAL PAIN IMPRESSION: 1. Marked interval progression of disease compared to 12.5.16. 2. Several new right lung masses, presumably reflecting pulmonary lymphoma. 3. Multiple new peritoneal masses, as well as peritoneal nodularity and ascites , indicating peritoneal carcinomatosis. 4. Intrahepatic masses are present, consistent with lymphoma. Dictated by: Kayla Bartholomew M.D. on 12/22/2016 at 9:50 PROCEDURE: US GUIDED BIOPSY ABDOMEN/RETROPERITONEUM INDICATIONS: biopsy of pelvic LN IMPRESSION: Successful sonographically guided percutaneous biopsy involving the predominantly solid mass within the inferior pelvis. Dictated by: Isra LOBATO Interpreted: Carlene Perez MD on 12/27/2016 at 12:32 Assessment & Plan Dorian is unfortunate 71-year-old gentleman with past medical history of a typical lymphoblastic leukemia,mantle cell lymphoma of terminal ileum , nonischemic cardiomyopathy due to chemotherapy.Hypertension,JAk2 negative essential thrombocytosis # Acute kidney failure,worsening -Due to hypercalcemia of malignancy and spontaneous TLS -Bolus 2 L normal saline 1/sNS bicarb 100meq at 150ml/h -Keep home Lasix 20 mg, hold Aldactone -Received zometa 3mg x1 on 12/26 -Receiving Rasburicase 7.5mg today -cr worsened from 1.97 to 2.48 -f/u CMP in am -allopurinol 300mg daily -Nephrology consult -Discussed with oncology # Acute hypercalcemia -initial corrected ca 13.6 ,improved 13.1 -Management as above # Acute spontaneous TLS -initial uric acid 14.1 -Management as above # Rapidly progressing lymphoma, suspected transformation -underwent US guided biopsy today 12/27 -Chemotherapy ibrutinib orally is being prepared for preauthorization through the [facility] per Dr Barreto # JAK2 essential thrombocytosis -Continue aspirin 81 mg by mouth twice a day # nonischemic cardiomyopathy due to chemotherapy -EF 35-40% -will watch out for fluid overload -Continue carvedilol and Lasix, hold Aldactone -BNP 1300 # leukocytosis -elevated procal,afebrile,blood cx pending -hold off emperic abx # anemia -due to lymphoma -f/u cbc in am Patient admitted under inpatient status with expected length of stay > 2 midnights for severity of present symptoms, complexities of treatment plan and risk for adverse events Full code,names his son Willie as POA ,tel [phone] [employer]: Intermittant Pneumatic CD Matt Mann MD Dec 27, 2016 15:11
--- NOTE | 2016-12-27 16:51 | DRSVH ---
[facility] [address] [place] [address] Echocardiogram Report Name: MICHELLE KAPADIA HStudy Date: 12/27/2016 Height: 74 in Hospital Exam Location: [facility] Weight: 215 lb Gender: Male BSA: 2.2 m2 : 1945 Age: 71 yrs BP: 135/87 mmHg Reason For Study: TACHYCARDIA, ELEVATED D-DIMER Ordering Physician: Performed By: Ameya Esqueda Referring Physician: Cheo DONAHUE Interpretation Summary The ejection fraction is estimated to be 35-40%. Septal motion is consistent with conduction abnormality. There is inferior wall severe hypokinesis. There is no significant valvular heart disease. Compared to the prior echo report on 2015, there is no significant change. Procedure: A two-dimensional transthoracic echocardiogram with color flow and Doppler was performed. The study quality was technically good. There is no prior echocardiogram noted for this patient. The patient ended the exam early due to discomfort and fatigue. The subcostal views were not obtained due to the patient ending the exam early. The patient was in normal sinus rhythm during the exam. The patient had a bundle branch block rhythm during the exam. Left Ventricle: The left ventricle is mildly dilated. Left ventricular wall thickness is borderline increased. The ejection fraction is estimated to be 35-40%. Septal motion is consistent with conduction abnormality. There is inferior wall severe hypokinesis. Right Ventricle: The right ventricular apex is not well visualized. Atria: Both atria are normal in size. Mitral Valve: There is mild mitral annular calcification. Aortic Valve: The aortic valve is trileaflet. The aortic valve opens well. No aortic regurgitation is present. Tricuspid Valve: The tricuspid valve is normal in structure and function. There is a trace or physiologic amount of tricuspid regurgitation. Pulmonary artery pressures cannot be estimated because of the lack of a measurable TR jet velocity. Pulmonic Valve: The pulmonic valve is not well visualized. There is trace pulmonic regurgitation. Great Vessels: The aortic root is normal size. The ascending aorta is mildly enlarged. The pulmonary artery is normal size. Pericardium/ Pleura There is no pericardial effusion. There is no pleural effusion. MMode/2D Measurements & Calculations LVIDd: 6.2 cm LA dimension: 4.1 cm Ao root diam EDV(MOD-sp2) LVIDs: 5.1 cm FS: 18.3 % Aortic Jxn ESV(MOD-sp2) EPSS: 1.4 cm IVSd: 1.0 cm asc Aorta EF(MOD-sp2) LVPWd: 1.1 cm Diam: 3.6 cm : 36.6 % LV carpenter. diameter/BSA LV sys. diameter/BSA (cm/m^2): 2.8 (cm/m^2): 2.3 Doppler Measurements & Calculations PA V2 max: 80.3 cm/sec PA V2 mean: 57.5 cm/sec PA mean P.4 mmHg PA pr(Accel): 54.0 mmHg PA Accel Time: 0.05 sec Electronically signed by: Neville Caba on Reading Physician:12/27/2016 04:51 PM
--- NOTE | 2016-12-27 18:57 | NUR ---
Gamez/Discomfort Gamez placed per orders, pt used bathroom prior to gamez with minimal output about 100mL. Upon placement of gamez, 500mL of dark isak urine drained into bag. Pt reported discomfort in penis after placement, requested to have the gamez removed. Instructed pt about necessity of catheter, protocols and encouraged pt to leave it in for a while. Pt later reported that the irritation went away. Discomfort/Pain Pt reported generalized pain 8/10 all over body. Given PRN 1mg Morphine. Monitored breathing and pt ability to tolerate. Next dose pt should tolerate 2mg dose. Pt reported pain decreased to 5/10.
[2016-12-27] MEDS ORDERED: Vancomycin Dose per Pharmacist XX SCH (19:45)
[2016-12-27] MEDS ORDERED: Vancomycin Inj 1,000 MG in IV Premix 1 EACH IV SCH (20:00)
[2016-12-27] MEDS ORDERED: diphenhydrAMINE 25 mg Capsule PO PRN (20:50)
--- NOTE | 2016-12-27 22:00 | NUR ---
Positive Blood Culture: P: #1/4 blood cultures came back positive for cocci. I: Dr. Love notified of positive blood culture. Pt started on IV Vancomycin. E: Will cont. to monitor.
[2016-12-28] VITALS (14 sets, daily range): BP systolic 104–121; BP diastolic 67–79; PULSE 87–100; RESP 18–28; O2SAT 86–99
[2016-12-28 05:36] LABS: BASOPHILS % (AUTO) 0.2 % (0-3); EOSINOPHILS % (AUTO) 0.2 % (0-5); MONOCYTES % (AUTO) 18.5 % (4-12); Mean Corpuscular Hemoglobin 27.8 pg (27.0-35.0); Mean Corpuscular Volume 90.5 fL (81-100); NEUTROPHILS % (AUTO) 73.6 % (40-74)
[2016-12-28 05:57] LABS: Platelet Count 503 bil/L (150-400)
[2016-12-28] MEDS: Heparin 5,000 Unit/mL Inj SUBQ SCH ×2 (08:07→17:06)
[2016-12-28] MEDS: SODIUM CHLORIDE 0.45% IV SCH (08:08)
[2016-12-28] MEDS: SODIUM BICARB IV SCH (08:08)
[2016-12-28] MEDS ORDERED: Vancomycin Dose per Pharmacist XX SCH (08:30)
[2016-12-28] MEDS: Cefepime Inj 1,000 MG in Dextrose 5% Minibag Plus 50 ML IV SCH (08:38)
--- NOTE | 2016-12-28 08:48 | PCM.PNNEPH ---
Subjective Date of Service Dec 28, 2016 Subjective The patient states that he has not felt feverish or chills. He denies worsening diarrhea or abdominal pain. He has not seen any new rashes. He states that he is not nauseated but he also did not feel that breakfast sounded good this morning. Exam Vital Signs Vital Sign - Last Date Time Temp Pulse Resp B/P Pulse Ox O2 Delivery O2 Flow Rate FiO2 12/28/16 04:53 36.4 93 20 121/72 94 Room Air Intake and Output 12/27/16 12/27/16 12/28/16 Cumulative From/Thru 15:00 23:00 07:00 12/26/16 13:25 - 12/28/16 06:12 Intake Total 2331 ml 961 ml 5906 ml Output Total 650 ml 350 ml 1575 ml Balance 1681 ml 611 ml 4331 ml Intake Oral 500 ml 100 ml 800 ml IV Total 1831 ml 861 ml 5106 ml Output Urine Total 650 ml 350 ml 1425 ml Emesis 150 ml # Bowel Movements 1 1 Exam Gen. Cachectic patient is lying comfortably in hospital bed in no acute distress Eyes: PERRLA, anicteric sclera, noninjected conjunctiva HENT: Head is normocephalic atraumatic, moist mucus membranes without central cyanosis Neck: supple, without significant JVD, trachea midline no significant lymphadenopathy Heart: regular rate and rhythm without murmurs gallops or rubs Lungs: clear to auscultation bilaterally without significant wheezing rales or rhonchi Abdomen: distended with irregular feeling masses, no fluid wave noted, nontender Extremities: pulses are present bilaterally at dorsalis pedis and radial arteries. Skin is warm and dry there are no rashes, Neuro: cranial nerves II through XII are grossly intact, no focal neurologic deficit Psych: alert and oriented to person place and time : gamez in place with dark urine and some Lab and Diagnostics Result Diagram: 12/28/1651912/28/16519 X-Rays, CTs and MRIs PROCEDURE: CT CHEST, ABDOMEN AND PELVIS WITHOUT CONTRAST ([id number]) INDICATIONS: LYMPHOMA, ABDOMINAL PAIN IMPRESSION: 1. Marked interval progression of disease compared to 12.5.16. 2. Several new right lung masses, presumably reflecting pulmonary lymphoma. 3. Multiple new peritoneal masses, as well as peritoneal nodularity and ascites , indicating peritoneal carcinomatosis. 4. Intrahepatic masses are present, consistent with lymphoma. Dictated by: Kayla Bartholomew M.D. on 12/22/2016 at 9:50 PROCEDURE: US GUIDED BIOPSY ABDOMEN/RETROPERITONEUM INDICATIONS: biopsy of pelvic LN IMPRESSION: Successful sonographically guided percutaneous biopsy involving the predominantly solid mass within the inferior pelvis. Dictated by: Isra LOBATO Interpreted: Carlene Perez MD on 12/27/2016 at 12:32 Cardiac Echo Impressions Echocardiogram Report Interpretation Summary The ejection fraction is estimated to be 35-40%. Septal motion is consistent with conduction abnormality. There is inferior wall severe hypokinesis. There is no significant valvular heart disease. Compared to the prior echo report on 2015, there is no significant change. Electronically signed by: Neville Caba on Reading Physician:12/27/2016 04:51 PM Additional Diagnostics US RENAL SONOGRAM IMPRESSION: 1. No hydronephrosis. 2. Mild ascites. 3. Moderate 90 cc PVR recorded. 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 Acute kidney injury secondary to tumor lysis syndrome. 2. Dehydration. 3. Hypercalcemia. 4. Hyperuricemia. 5. Metabolic acidosis 6. anemia Plan: # Acute kidney failure,worsening -cr worsened from 1.97 to 2.48 to 2.59 -likely due to combination obstruction, abdominal hypertension from ascites and hypercalcemia of malignancy and spontaneous tumor lysis syndrome from rapid recurrence of lymphoma, as well as recent admission of Vancomycin -Bolus 2 L normal saline - bicarb 100meq at 75ml/h -Keep home Lasix 20 mg, hold Aldactone, discontinue Vancomycin as the blood culture was a contaminant from coag negative staph -Received Rasburicase 7.5mg -Gamze in place for obstruction -abdominal US for possible Paracentesis showed no fluid and significant tumor burden in the lower abdomen -f/u CMP in am -Discussed with oncology # Acute hypercalcemia -secondary to TLS -initial corrected ca 13.6 -Received zometa 3mg x1 on 12/26 -hold calcium carbonate chews -Management as above # Acute hyperuricemia - secondary to spontaneous TLS -initial uric acid 14.1 significantly decreased to 4 -allopurinol 300mg daily -Management as above # metabolic acidosis - likely secondary to uricemia # Rapidly progressing lymphoma, suspected transformation -underwent US guided biopsy today 12/27 -abdominal US for possible Paracentesis showed no fluid and significant tumor burden in the lower abdomen # 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
[2016-12-28] MEDS: Ondansetron 2 mg/mL 2 mL Inj IVPUSH PRN (09:58)
[2016-12-28] MEDS: 0.9% Sodium Chloride 250 ML IV SCH ×3 (10:15→16:26)
[2016-12-28] MEDS: Alum-Mag Hydrox-Simeth 30 mL Suspension PO PRN (11:05)
--- NOTE | 2016-12-28 11:31 | NUR ---
Respiratory: Increased coughing up thick brown sputum, rattling in throat. Encouraged to cough to clear throat. RT called to assess. O2 saturation 86% room air, BP 118/79, HR 99, RR 28. Placed on 4L oxygen, o2 sats now 96%. paged. Addendum: 12/28/16 at 1412 by ADDA [address]RE[address]ER RN Approx 1200: Administered Lasix IV, discontinue continuous IVFs per order. O2 saturation now 97-98% 3L NC. Decreased oxygen to 2L NC, O2 sat 96-97% NC. Resting w/eyes closed at this time, RR 20.
[2016-12-28] MEDS ORDERED: Furosemide 10 mg/mL 4 mL Inj IVPUSH ONE ×2 (11:50→11:55)
--- NOTE | 2016-12-28 14:02 | PCM.PNNEPH ---
Subjective Date of Service Dec 28, 2016 Subjective The patient has had some worsening of his kidney issues in the last 24 hours. Only a slight deterioration. His intake and output in the last 24 shows 3945 out. His blood pressures have averaged in the 100 to 120s range. He complains of some abdominal fullness and some mild respiratory problem secondary to increased abdominal girth. He denies any chest pain or vomiting. I reviewed his CT scan of his abdomen with the radiologist and it appears that his abdomen has been infiltrated with large tumor masses. In light of this I am not sure what further help we can be beyond comfort measures. His uric acid has dropped drastically to 4.4 CALCIUM remains elevated at 12.2. Exam Vital Signs Vital Sign - Last Date Time Temp Pulse Resp B/P Pulse Ox O2 Delivery O2 Flow Rate FiO2 12/28/16 13:12 97 20 97 Nasal Cannula 4.00 12/28/16 13:05 36.4 109/73 Intake and Output 12/27/16 12/27/16 12/28/16 Cumulative From/Thru 15:00 23:00 07:00 12/26/16 13:25 - 12/28/16 06:12 Intake Total 2331 ml 961 ml 5906 ml Output Total 650 ml 350 ml 1575 ml Balance 1681 ml 611 ml 4331 ml Intake Oral 500 ml 100 ml 800 ml IV Total 1831 ml 861 ml 5106 ml Output Urine Total 650 ml 350 ml 1425 ml Emesis 150 ml # Bowel Movements 1 1 Exam HEENT examination is remarkable for pale sclera. Neck is supple without adenopathy, thyromegaly, or jugular venous distention. Lungs are clear to auscultation. Heart is regular and rhythmical with a soft systolic murmur. Abdomen is quite distended with intermittent tympani. There is no tenderness, rebound, or guarding noted. Extremities showed some mild lower extremity edema but otherwise are unremarkable. Lab and Diagnostics Result Diagram: 12/28/1651912/28/16519 X-Rays, CTs and MRIs PROCEDURE: CT CHEST, ABDOMEN AND PELVIS WITHOUT CONTRAST ([id number]) INDICATIONS: LYMPHOMA, ABDOMINAL PAIN IMPRESSION: 1. Marked interval progression of disease compared to 12.5.16. 2. Several new right lung masses, presumably reflecting pulmonary lymphoma. 3. Multiple new peritoneal masses, as well as peritoneal nodularity and ascites , indicating peritoneal carcinomatosis. 4. Intrahepatic masses are present, consistent with lymphoma. Dictated by: Kayla Bartholomew M.D. on 12/22/2016 at 9:50 PROCEDURE: US GUIDED BIOPSY ABDOMEN/RETROPERITONEUM INDICATIONS: biopsy of pelvic LN IMPRESSION: Successful sonographically guided percutaneous biopsy involving the predominantly solid mass within the inferior pelvis. Dictated by: Isra LOBATO Interpreted: Carlene Perez MD on 12/27/2016 at 12:32 Cardiac Echo Impressions Echocardiogram Report Interpretation Summary The ejection fraction is estimated to be 35-40%. Septal motion is consistent with conduction abnormality. There is inferior wall severe hypokinesis. There is no significant valvular heart disease. Compared to the prior echo report on 2015, there is no significant change. Electronically signed by: Neville Caba on Reading Physician:12/27/2016 04:51 PM Additional Diagnostics US RENAL SONOGRAM IMPRESSION: 1. No hydronephrosis. 2. Mild ascites. 3. Moderate 90 cc PVR recorded. Dictated by: Isra LOBATO Interpreted: Carlene Perez MD on 12/27/2016 at 11:54 Transcribed by: DON on 12/27/2016 at 11:55 Approved by: Carlene Perez MD, PhD on 12/27/2016 at 13:09 Plan Impression Impression #1 acute kidney injury secondary to tumor lysis synd christiano #2 hypercalcemia #3 hyper uricemia number for diffuse infiltration of the abdomen with tumor mass Recommendations #1 at this point I will defer to Dr. Barreto recommendations. Ho Carvajal DO Dec 28, 2016 14:02
--- NOTE | 2016-12-28 14:05 | DRSVH ---
PROCEDURE: X-RAY CHEST ONE VIEW, PORTABLE ([id number]) INDICATIONS: chf TECHNIQUE: One view of the chest was acquired. COMPARISON: [facility], CR, XR CHEST 1VW (PORTABLE), 12/26/2016, 16:08. FINDINGS: Surgical changes and devices: A right-sided Port-A-Cath central line is unchanged in position with th e tip overlying the superior vena cava. Lungs and pleura: Mild infrahilar interstitial prominence may be exaggerated by shallow inspiration. There is slight blunting of the right costophrenic angle. No definite pneumothorax or large effusio n is evident. No lobar consolidation is identified. Mediastinum: Mediastinal contours appear normal. Heart size is normal. Bones and chest wall: No suspicious bony lesions. Overlying soft tissues appear unremarkable. IMPRESSION: 1. Mild vascular congestion without overt failure. 2. Possible trace right-sided pleural effusion. Dictated by: Brock Orellana M.D. on 12/28/2016 at 13:03 Approved by: Brock Orellana M.D. on 12/28/2016 at 13:04
[2016-12-28] MEDS ORDERED: Sodium Chloride LOK Flush 10 mL Syringe IVFLUSH PRN ×2 (14:55)
[2016-12-28] MEDS ORDERED: HepLOK Flush 100 unit/mL 5 mL Inj IVFLUSH PRN (14:55)
--- NOTE | 2016-12-28 14:58 | NUR ---
Respiratory Pt removed nasal cannula during shift. Oxygen stats dropped to 87% on room air. Put oxygen back on, pt maintains 96% stats on 2 L of oxygen.
--- NOTE | 2016-12-28 15:00 | NUR ---
Transfer of care Assumed care of pt at 1500. Pt laying in bed, denies any pain/SOB. CPOX at bedside, 02 sats 98% on 2L. Family at bedside. SN Gibson providing care with RN supervision. Bed in lowest, locked position and call light in reach.
[2016-12-28] MEDS: Albuterol-Ipratropium 3 mL Inhalation Solution NEB SCH ×3 (15:22→22:25)
--- NOTE | 2016-12-28 16:46 | PCM.PNMED ---
Subjective Date of Service Dec 28, 2016 Subjective patient had brief worsening dyspnea with desaturation to mid 80s. Discontinued IV fluid/bicarbonate drip and gave Lasix 40 mg IV. Dyspnea improved. Chest x- ray consistent with congestion. Gram-positive bacteremia noted and started on cefepime and vancomycin. Kidney function continues to worsen. Exam Vital Signs Vital Sign - Last Date Time Temp Pulse Resp B/P Pulse Ox O2 Delivery O2 Flow Rate FiO2 12/28/16 14:36 Supplement Oxygen 12/28/16 13:12 97 20 97 4.00 12/28/16 13:05 36.4 109/73 Intake and Output 12/27/16 12/27/16 12/28/16 Cumulative From/Thru 15:00 23:00 07:00 12/26/16 13:25 - 12/28/16 06:12 Intake Total 2331 ml 961 ml 5906 ml Output Total 650 ml 350 ml 1575 ml Balance 1681 ml 611 ml 4331 ml Intake Oral 500 ml 100 ml 800 ml IV Total 1831 ml 861 ml 5106 ml Output Urine Total 650 ml 350 ml 1425 ml Emesis 150 ml # Bowel Movements 1 1 Exam Gen. Cachectic patient is lying comfortably in hospital bed HEENT: Dry buccal mucosa, Head is normocephalic atraumatic, Pupils equal and reactive, extraocular movements intact, Lungs clear to auscultation bilaterally Heart regular rate and rhythm without murmurs gallops or rubs Abdomen distended with irregular feeling masses Extremities pulses are present dorsalis pedis posterior tibialis and radial. Skin is warm and dry there are no rashes, Psych alert and oriented to person place and time Neuro cranial nerves II through XII are grossly intact Lymph: There is no lymphadenopathy appreciated in the cervical supra infraclavicular regions : no fole IVs and Medications Medications Reviewed: Medications were reviewed in detail Lab and Diagnostics Result Diagram: 12/28/1651912/28/16519 X-Rays, CTs and MRIs PROCEDURE: CT CHEST, ABDOMEN AND PELVIS WITHOUT CONTRAST ([id number]) INDICATIONS: LYMPHOMA, ABDOMINAL PAIN IMPRESSION: 1. Marked interval progression of disease compared to 12.5.16. 2. Several new right lung masses, presumably reflecting pulmonary lymphoma. 3. Multiple new peritoneal masses, as well as peritoneal nodularity and ascites , indicating peritoneal carcinomatosis. 4. Intrahepatic masses are present, consistent with lymphoma. Dictated by: Kayla Bartholomew M.D. on 12/22/2016 at 9:50 PROCEDURE: US GUIDED BIOPSY ABDOMEN/RETROPERITONEUM INDICATIONS: biopsy of pelvic LN IMPRESSION: Successful sonographically guided percutaneous biopsy involving the predominantly solid mass within the inferior pelvis. Dictated by: Isra LOBATO Interpreted: Carlene Perez MD on 12/27/2016 at 12:32 Cardiac Echo Impressions Echocardiogram Report Interpretation Summary The ejection fraction is estimated to be 35-40%. Septal motion is consistent with conduction abnormality. There is inferior wall severe hypokinesis. There is no significant valvular heart disease. Compared to the prior echo report on 2015, there is no significant change. Electronically signed by: Neville Caba on Reading Physician:12/27/2016 04:51 PM echo 12/27 The ejection fraction is estimated to be 35-40%. Septal motion is consistent with conduction abnormality. There is inferior wall severe hypokinesis. There is no significant valvular heart disease. Compared to the prior echo report on 2015, there is no significant change. Additional Diagnostics US RENAL SONOGRAM IMPRESSION: 1. No hydronephrosis. 2. Mild ascites. 3. Moderate 90 cc PVR recorded. 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 Initially started on bicarb 100meq at 150ml/ h. Discontinued today due to fluid overload. Uric acid improved to 4. Will do Urinalysis to see pH tomorrow and decide on bicarbonate drip. - home Lasix 20 mg switched to 40 mg IV daily to overload, hold Aldactone -Received zometa 3mg x1 on 12/26 -Received Rasburicase 7.5mg today -cr continues to worsen -f/u CMP in am -allopurinol 300mg daily -Nephrology consult -Discussed with oncology # Acute hypercalcemia -initial corrected ca 13.6 ,improved 13.1 -Management as above # Acute spontaneous TLS -initial uric acid 14.1 improved to 4 after Rasburicase -Management as above # Gram-positive bacteremia -1 out of 2 blood cultures growing gram-positive coccus. Empirically started cefepime and vancomycin -Repeat blood culture sent -Worsening leukocytosis noted -Pro calcitonin 0.82. Source possibly pneumonia. 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 Discontinued IV fluid/bicarbonate drip and gave Lasix 40 mg IV. Dyspnea improved. Chest x-ray consistent with congestion. Will continue Lasix 40 mg IV daily. Will resume bicarbonate drip tomorrow -EF 35-40% -Repeat echo unchanged -will watch out for fluid overload -Continue carvedilol and Lasix, hold Aldactone -BNP 1300 # leukocytosis -elevated procal,afebrile,blood cx pending -hold off emperic abx # anemia -due to lymphoma -f/u cbc in am Patient admitted under inpatient status with expected length of stay > 2 midnights for severity of present symptoms, complexities of treatment plan and risk for adverse events Full code,names his son Willie as POA ,tel [phone] [employer] Devices: Intermittant Pneumatic CD Matt Mann MD Dec 28, 2016 16:46
--- NOTE | 2016-12-28 20:09 | CONS ---
[address] [address] CONSULTATION REPORT PATIENT: MICHELLE KAPADIA : 1945 MR#: [id number] ADMIT: 12/26/2016 JOB ID: [id number] DATE OF SERVICE: 12/28/[address] Mann for this timely consultation. REASON FOR CONSULT: Bacteremia and possible systemic infection. HISTORY OF PRESENT ILLNESS: The patient is an extremely, unfortunate, 71-year-old gentleman. The patient has a history of two separate lymphomas which were treated in remission except for some minimal residual mantle cell lymphoma of the ileocecal valve area. He had been on maintenance therapy but recently has noticed decreased energy, weakness with walking or any sort of exertion, and progressive abdominal swelling. A CT scan done recently by his oncologist revealed that he had new abdominal and pelvic masses which are of great concern for possible recurrent lymphoma. There were plans to go ahead and get a needle biopsy because of his decreased performance status, increased abdominal girth and intra-abdominal masses which likely represented recurrent malignancy but, unfortunately, the patient missed some of his appointments because he was so weak and then eventually reported to the emergency department and was admitted on December 26, two days ago, with a progressive weakness and abdominal swelling. In the emergency department, it was discovered that he had worsening renal failure as well as hyperkalemia which led to his admission. He was also noted to have a leukocytosis and was started on empiric antibiotics after cultures were obtained. This evening, the patient tells me that he has been feeling much more weak over the past three weeks or so. Any exertion leaves him profoundly fatigued and short of breath to the point he cannot move any further. He reports also that he has developed within the first 24 hours a cough in addition to his baseline and worsening shortness of breath. He did not use oxygen at home but reports he could only walk 20-30 feet, and he is now receiving oxygen here. Likewise, he did not have any urinary symptoms at home but since admission he has received a Barcenas catheter. He denies having had any fevers, chills, or sweats prior to admission. He likewise denies headache. He did have a mild sore throat somewhere around the time he was admitted and developed a cough as mentioned after his admission. He has had no nausea or vomiting. He has had some pain because of his rapidly increasing abdominal girth. PAST MEDICAL HISTORY: 1. 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 2. 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 3. Nonischemic cardiomyopathy. 4. Hypertension. 5. 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 6. Status post right knee replacement. 7. Port insertion. SOCIAL HISTORY: The patient is a nonsmoker, nondrinker. He formerly served honorably in the [employer] and was stationed in [place] as a young man. He reports that he is now "alone" as his longtime girlfriend left him today and moved out of their home. FAMILY HISTORY: The patient has no history of tuberculosis in first or second-degree relatives. REVIEW OF SYSTEMS: Was done. The patient states he has no headache, no acute visual change. He has a mild sore throat. He notes that his overall energy level is down and he has been losing weight in the periphery of his body even as he gains it in his belly. He notes that he has developed a raspy, productive cough over the last 24 hours. He has no pleuritic chest pain. He is short of breath even at rest and worse with any movement whatsoever. His abdominal girth seems to be rapidly increasing over the past three weeks or so. He has had some vague abdominal pain but no nausea or vomiting. No diarrhea. He did not have dysuria, urgency or frequency prior to admission, but he has a Barcenas now. He has not had any new or particular pain in his joints. He has noticed some peripheral edema in his legs. Remainder of the review of systems is negative. PHYSICAL EXAMINATION: Reveals a wasted seriously ill gentleman. His temperature is 37.4, and it is notable that he has been afebrile since admission. His pulse is 98, his respiratory rate is 20, his blood pressure 108/72, he is saturating 97% on 4 L. Examination of the head reveals temporal wasting without evidence of trauma. His eyes are notable for some conjunctival pallor without conjunctivitis. His nose is normal-appearing. His oral cavity without thrush or hairy leukoplakia. His neck is notable for wasting including sunken supraclavicular fossae bilaterally. There is no cervical or supraclavicular lymphadenopathy. His neck is supple. On examination of the lungs, notable for wet transmitted upper airway sounds bilaterally with a few crackles at the bases but not bad overall. His heart tones are surprisingly distant, regular rate and rhythm without murmur. His abdomen is grossly distended with apparent ascites present. I do not palpate abdominal masses per se but his abdomen is not tender. Hepatosplenomegaly is not appreciated. He has a Barcenas catheter. Penis and scrotum appear normal. Extremities notable for peripheral edema about 1+. His joints are without evidence of synovitis. His extremities are well perfused with good pulses in the extremities. No skin breakdown is observed. Neurologically, the patient can move everything but he is profoundly weak. LABORATORIES: Include white blood count 17,000, hematocrit 28, and platelet count 500,000. Note that his white count has not changed since admission. It has been 16 to 17,000 all along. His diff is surprisingly benign, 73% segs, 18% monocytes. His creatinine is 2.59. This has worsened since he came in. His calcium 12 today, came in at 13. Procalcitonin 0.82. This is probably normal when adjusted for his renal function which is very poor. Urinalysis without white cells. One of four blood cultures positive for coag-negative Staph. Repeat blood culture is pending. IMAGING: Includes an abdominal ultrasound on admission that shows several inferior pelvic peritoneal masses. One of these was subsequently biopsied. Retroperitoneal ultrasound shows no hydronephrosis, and there is mild ascites present. Chest x-ray shows large linear right basilar opacities typical of plate-like atelectasis. A repeat chest x-ray done today shows trace right-sided effusion but no evidence of pneumonia. In reviewing his microbiology records from prior years, the patient has had MRSA but that was four years ago and it was an ear infection. IMPRESSION: This is an extraordinarily unfortunate gentleman who has had two separate malignancies with which he has done fairly well until recently when he developed a dramatic increase in his abdominal girth which was associated with the development of these masses seen on CT and ultrasound. This has all been associated with acute renal failure as well as hyperkalemia. His presentation in no way sounds infectious to me, and I strongly suspect that the single coagulase positive Staph found in one blood culture is a contaminant. I failed to mention in my physical that his port is nontender and does not look infected, and I see really nothing else at this point that jumps out as a potential site of infection. That said, the patient is critically ill, and I think it may be prudent to cover him with a broad-spectrum antibiotic for a few days while we sort things out, but I would certainly strive to avoid any nephrotoxic agents and specifically would not give vancomycin or aminoglycosides under any circumstance. Given that he is likely to face additional chemotherapy and immunosuppressing events going forward, we will check a Fungitell and galactomannan as baseline assays. His current antibiotics include cefepime 1 g once a day which is renally adjusted, and I agree with that plan. I note that he was given a single dose of vancomycin which will undoubtedly be around for a while, but I would avoid nephrotoxic agents. If no positive blood cultures or any other additional data suggesting infection is obtained over the next 2-3 days, I would likely stop antibiotics at day five. RECOMMENDATIONS: 1. No nephrotoxic agents, specifically no Vanco. 2. Will continue cefepime while we await the additional blood cultures. 3. Will check Fungitell and galactomannan. 4. I may or may not see this patient tomorrow, but, in any event, I will be gone at least Monday through Monday. I can be reached by text or e-mail about this or any other patient as needed but probably not by telephone. Thank you very much for this consultation.
--- NOTE | 2016-12-28 21:27 | CCS NOTE ---
[facility] [address], [address] [address] MEDICAL ONCOLOGY OFFICE NOTE PATIENT: MICHELLE KAPADIA : 1945 MR#: [id number] DATE: 12/26/2016 JOB ID: [id number] DATE: 12/28/2016 SUBJECTIVE: The patient is in bed, very weak overall. No significant plant changer the last 24 hours in his functional status. He had an episode of desaturation and was given Lasix and it has improved earlier today. I am having a visit with him and a family conference with his son and close friends this evening. He did receive rasburicase 7.5 mg yesterday afternoon. As a result, his uric acid has improved from 13 to now 4 and his creatinine deterioration has stabilized. Over the past 24 hours, his creatinine has gone up only minimally as opposed to previously rapid rise on a daily basis. Barcenas catheter has been placed. Blood counts are otherwise stable. On exam, he is alert, very weak but interactive and fully oriented. He has a severely distended abdomen. Heart regular. Extremities show he has mild edema. ASSESSMENT AND PLAN: A 71-year-old gentleman with a history of two separate lymphomas who has experienced a rapid deterioration of disease, quickly developing large masses within the abdomen. He has no hydronephrosis but has developed acute renal failure that was rapidly deteriorating over the past week due to a combination of factors, particularly spontaneous tumor lysis causing hyperuricemia, dehydration and hypercalcemia. Rasburicase administration has helped reducing the uric acid. It was given at the low dose of 7.5 mg and brought the uric acid down to 4.0. I spoke with the hospitalist team and because of concern of volume overload with his pre-existing left ventricular dysfunction, the bicarb drip is being held this afternoon until tomorrow with a dose of Lasix given. It would be beneficial to possibly consider resuming the bicarb at a lower rate to maintain alkalinization of the urine. I had a family conference with the patient's son and spent the night. I had a dunia conversation about my concerns about his overall functional status and prognosis. I spoke with of pathology and we are hoping to get some preliminary result from the biopsy from yesterday by tomorrow afternoon. The patient clearly desires to still continue active therapy against his cancer. We are in the process of obtaining insurance authorization for the oral agent ibrutinib. This was obtained and there is now a co-pay assistance and we had a conversation with his son who is turning in the paperwork so that hopefully by the end of this week this expensive oral agent can be shipped from the specialty pharmacy. I spoke with the patient and family about his code status. I recommended that he considers DO NOT RESUSCITATE/DO NOT INTUBATE status. Should his cardiovascular or respiratory status present with an arrest, it would be quite detrimental to him to attempt resuscitation and mechanical ventilation in this setting with poor prognostic advanced malignancy. The family was very receptive and the patient once understanding of the difference between active therapy versus resuscitation, is also agreeable to the DNR/DNI status and they will revisit this with the hospitalist team. However, as the patient desires, we will continue aggressive management for stabilization of his kidneys and initiation of second-line therapy for presumably relapsed progressing mantle cell lymphoma. He is currently not a candidate for combination cytotoxic salvage chemotherapy, but I think he could tolerate the oral agent, ibrutinib, as discussed above. TIME SPENT WITH PATIENT: Approximately 1 hour and 10 minutes were spent in counseling and coordination of care.
[2016-12-29] VITALS (14 sets, daily range): BP systolic 95–113; BP diastolic 58–75; PULSE 92–112; RESP 20–34; O2SAT 90–98
[2016-12-29] MEDS ORDERED: Furosemide 10 mg/mL 4 mL Inj IVPUSH ONE ×2 (01:20→17:00)
[2016-12-29] MEDS: Heparin 5,000 Unit/mL Inj SUBQ SCH ×3 (01:32→16:57)
--- NOTE | 2016-12-29 01:49 | NUR ---
Desaturation/Lasix At 0115 Pts SpO2 on his bed side continuous pulse oximiter showed 77%. Pts breathing sounded wet and gurgling. Pt was boosted up in bed, Placed on a non-rebreather mask wide open, and suction was used to remove secretions from Pts mouth. Secretions were noted to be a rustic, orange brown color. Pts SpO2 rapidly jesse to 99%. Lung sounds very wet and congested in lower lobes bilaterally. Night hospitalist was notified and 40mg of IV lasix was ordered and given. Pt slowly began to improve, SpO2 has remained in mid 90s and oxygen flow has been titrated down to 6L via non-rebreather mask. Pt is resting comfortably in bed at this time. Will continue to closely monitor Pts condition. Addendum: 12/29/16 at 0612 by CLOTILDE VICTOR RN Update CXR was obtained and Pt has been taken off non-rebreather and is not holding a SpO2 of 94-97% on 4L via oxy mask. Pt s breathing has eased, and is muck less wet and gurgled. Despite receiving Lasix Pts gamez drainage bad has had minimal output post Lasix administration. 50ml about 2 hours after.
[2016-12-29 05:32] LABS: EOSINOPHILS % (AUTO) 0 % (0-5); Mean Corpuscular Hemoglobin 27.6 pg (27.0-35.0); Mean Corpuscular Volume 89.9 fL (81-100); Platelet Count 485 bil/L (150-400)
[2016-12-29 05:49] LABS: BASOPHILS % (AUTO) 1 % (0-3); MONOCYTES % (AUTO) 11 % (4-12); NEUTROPHILS % (AUTO) 79 % (40-74)
[2016-12-29] MEDS: Cefepime Inj 1,000 MG in Dextrose 5% Minibag Plus 50 ML IV SCH (08:16)
[2016-12-29] MEDS ORDERED: Furosemide 10 mg/mL 4 mL Inj IVPUSH SCH (08:30)
--- NOTE | 2016-12-29 08:40 | DRSVH ---
PROCEDURE: X-RAY CHEST ONE VIEW, PORTABLE ([id number]) INDICATIONS: worsening of respiratory condition TECHNIQUE: One view of the chest was acquired. COMPARISON: [facility], CR, XR CHEST 1VW (PORTABLE), 12/28/2016, 13:26. FINDINGS: Surgical changes and devices: Stable positioning of right chest port. Lungs and pleura: No pleural effusions or pneumothorax. Lungs are clear. Mediastinum: Mediastinal contours appear normal. Heart size is normal. Bones and chest wall: No suspicious bony lesions. Overlying soft tissues appear unremarkable. IMPRESSION: Expiratory chest demonstrating no definite acute cardiopulmonary process. Dictated by: Isra Sood RRPablo Interpreted: Mya Monroe MD on 12/29/2016 at 8:39 Transcribed by: MARICARMEN on 12/29/2016 at 8:39 Approved by: Mya Monroe M.D. on 12/31/2016 at 9:02
[2016-12-29] MEDS: Albuterol-Ipratropium 3 mL Inhalation Solution NEB SCH ×3 (08:51→20:11)
--- NOTE | 2016-12-29 09:51 | NUR ---
O2 needs This RN entered room for beeping pulse ox. O2 sats in mid-70's, pt not wearing NC. NC applied, increased to 5L, primary RN notified. Changed over to oxymask at 5L, satting low-mid 90's. Dr Mann notified.
[2016-12-29] MEDS: SODIUM CHLORIDE 0.45% IV SCH ×2 (11:02→19:15)
[2016-12-29] MEDS: SODIUM BICARB IV SCH ×2 (11:02→19:15)
[2016-12-29 11:05] LABS: APPEARANCE,URINE SLIGHTLY CLOUDY (CLEAR,HAZY); COLOR,URINE YELLOW (YELLOW)
[2016-12-29 11:06] LABS: OCCULT BLOOD,URINE LARGE (NEGATIVE); UROBILINOGEN,URINE NORMAL (NORMAL)
--- NOTE | 2016-12-29 11:40 | PCM.PNNEPH ---
Subjective Date of Service Dec 29, 2016 Subjective The patient's renal function has deteriorated overnight. He was given 1 dose of vancomycin and subsequently given Lasix which may have added to this deterioration. The patient is much more somnolent today but is able to answer simple questions. He denies any nausea or vomiting but states he has very little appetite. He denies any difficulty breathing other than his abdominal pressure. Last 24 hours his intake and output 1621 and an 800 out. This morning his sodium is 136, potassium 5.4, chloride 99, bicarbonate 20, BUN and creatinine are 75 and 3.43. Calcium is 11.4. Exam Vital Signs Vital Sign - Last Date Time Temp Pulse Resp B/P Pulse Ox O2 Delivery O2 Flow Rate FiO2 12/29/16 09:17 36.7 96 20 108/75 90 Nasal Cannula 7.00 Intake and Output 12/28/16 12/28/16 12/29/16 Cumulative From/Thru 15:00 23:00 07:00 12/26/16 13:25 - 12/29/16 06:11 Intake Total 460 ml 200 ml 500 ml 7066 ml Output Total 450 ml 125 ml 2150 ml Balance 460 ml -250 ml 375 ml 4916 ml Intake Oral 200 ml 500 ml 1500 ml IV Total 460 ml 5566 ml Output Urine Total 450 ml 125 ml 2000 ml Emesis 150 ml # Bowel Movements 1 1 3 Exam Patient remains pale and cachectic. Neck is supple without adenopathy thyromegaly or jugular venous distention. Lungs are clear. He has a poor inspiratory effort. Heart is regular and rhythmical with a soft systolic murmur. Abdomen remains distended and somewhat tense. There is no tenderness rebound guarding masses or hepatosplenomegaly. Extremities do not show any evidence of any clubbing cyanosis or edema. Skin turgor is poor. Lab and Diagnostics Result Diagram: 12/29/1651412/29/16514 X-Rays, CTs and MRIs PROCEDURE: CT CHEST, ABDOMEN AND PELVIS WITHOUT CONTRAST ([id number]) INDICATIONS: LYMPHOMA, ABDOMINAL PAIN IMPRESSION: 1. Marked interval progression of disease compared to 12.5.16. 2. Several new right lung masses, presumably reflecting pulmonary lymphoma. 3. Multiple new peritoneal masses, as well as peritoneal nodularity and ascites , indicating peritoneal carcinomatosis. 4. Intrahepatic masses are present, consistent with lymphoma. Dictated by: Kayla Bartholomew M.D. on 12/22/2016 at 9:50 PROCEDURE: US GUIDED BIOPSY ABDOMEN/RETROPERITONEUM INDICATIONS: biopsy of pelvic LN IMPRESSION: Successful sonographically guided percutaneous biopsy involving the predominantly solid mass within the inferior pelvis. Dictated by: Isra LOBATO Interpreted: Carlene Perez MD on 12/27/2016 at 12:32 Cardiac Echo Impressions Echocardiogram Report Interpretation Summary The ejection fraction is estimated to be 35-40%. Septal motion is consistent with conduction abnormality. There is inferior wall severe hypokinesis. There is no significant valvular heart disease. Compared to the prior echo report on 2015, there is no significant change. Electronically signed by: Neville Caba on Reading Physician:12/27/2016 04:51 PM echo 12/27 The ejection fraction is estimated to be 35-40%. Septal motion is consistent with conduction abnormality. There is inferior wall severe hypokinesis. There is no significant valvular heart disease. Compared to the prior echo report on 2015, there is no significant change. Additional Diagnostics US RENAL SONOGRAM IMPRESSION: 1. No hydronephrosis. 2. Mild ascites. 3. Moderate 90 cc PVR recorded. Dictated by: Isra LOBATO Interpreted: Carlene Perez MD on 12/27/2016 at 11:54 Transcribed by: DON on 12/27/2016 at 11:55 Approved by: Carlene Perez MD, PhD on 12/27/2016 at 13:09 Plan Impression Impression #1 acute kidney injury secondary to tumor lysis syndrome, vancomycin , and intravascular volume depletion. #2. Mantle cell lymphoma with aggressive recurrence Recommendations #1 vancomycin at this time unless there is an absolute need. I feel that our options are quite limited and I discussed this with Dr. Storey for a period of dialysis is certainly not an option. Anxiety continue with some cautious hydration but otherwise I have asked for. Ho Carvajal DO Dec 29, 2016 11:40
--- NOTE | 2016-12-29 13:15 | NUR ---
family medicine chairenrollment management manager note: Met with patient in room 3021. Patient is feeling extremely tired today and would like to rest. I explained to patient I would come back at a later time. Spoke with patient's Nurse who reported he had a difficult night due to his O2 Sat's dropping, but he is doing better on the mask. No care needs identified at this time. Will continue to follow and provided any assistance if needed.
--- NOTE | 2016-12-29 13:35 | PROG NOTE ---
[address] [address] PROGRESS NOTE PATIENT: MICHELLE KAPADIA : 1945 MR#: [id number] ADMIT: 12/26/2016 JOB ID: [id number] DATE: 12/29/2016 INFECTIOUS DISEASE FOLLOWUP NOTE: REASON FOR FOLLOWUP: Coag-negative staph bacteremia in the setting of advanced lymphoma. INTERVAL HISTORY: Recall this is the unfortunate gentleman who was admitted with progressive abdominal distention, weakness, renal failure and hyperkalemia. Since admission, it has been proven that he has a recurrence of his mantle cell lymphoma and this is producing most, if not all, of his current symptomatology. When I saw the patient this morning he is in surprisingly little distress but he reports that he continues to have pain everywhere but especially in his abdomen. He denies overnight fevers, chills, or worsening shortness of breath. He does have progressive abdominal distention and pain, however. PHYSICAL EXAMINATION: Reveals a profoundly ill gentleman with wasting and a very distended abdomen. Temperature is 36.6, and he has been afebrile since admission. Pulse 96, respiratory rate 20, blood pressure 108/75. He is on 7 L by nasal cannula and saturating only 90%. He appears somewhat short of breath, though he states he is not at this time. Examination of the eyes reveals that they are sunken without evidence of conjunctivitis. He has temporal wasting. His lungs are notable for crackles at the bases. Abdomen is distended and somewhat tender diffusely. LABORATORY STUDIES: Include white blood count 21,000. Note that this is 79% segs, 6% lymphs. His creatinine has jumped again to 3.43 from 2.6 yesterday, so a major increase in creatinine. Potassium 5.4, calcium 11.6. AST is 92, albumin 2.9. Procalcitonin 0.82, which is down slightly from 1.04 yesterday but both of these are probably normal numbers in someone in renal failure. Cultures include /12 bottles growing coag-negative staph, which is a Staph hominis. These 12 blood cultures include four bottles which are fungal. MRSA PCR of the nares is negative. Urine culture pending. Chest x-ray done today shows no clear-cut infiltrate, and his lungs appear fairly clear actually. I have heard through the hospitalist that we have a preliminary report on the biopsy of the mass and that it represents recurrence of his mantle cell lymphoma but I do not see a confirmation of that in the computer medical record section. IMPRESSION: This patient has presented with what appears to be a massive intra-abdominal/pelvic recurrence of his mantle cell lymphoma which has resulted in, among other things, renal failure and hyperkalemia. The leukocytosis may, in fact, be secondary to the tumor as well. I see no evidence for ongoing infection and certainly think that the coag-negative staphylococcus in the blood is a contaminant. RECOMMENDATIONS: 1. No additional vancomycin or any nephrotoxic antibiotics, and no additional therapy for the coag-negative staph in the blood which is probably a contaminant. 2. We could continue with cefepime for a several day course perhaps to cover for the possibility of intra-abdominal occult infection but I actually I am not certain if that is absolutely indicated in this unfortunate patient who is now starting his fourth day in the hospital. If cefepime as continued, I would probably confine its use to about seven days total or so, as I see no particular indication that he is infected and would require a longer course. 3. Infectious Disease will go ahead and sign off at this time. 4. I have discussed this case with Dr. Mann.
[2016-12-29] MEDS: 0.9% Sodium Chloride 250 ML IV SCH (14:55)
--- NOTE | 2016-12-29 16:31 | PATH ---
SURGICAL PATHOLOGY Attending Physician:See Additional MD CASE STATUS: Signed Out PATIENT NAME: MICHELLE KAPADIA PID: [id number] : 1945 DATE COLLECTED:12/27/2016 00:00 SPECIMEN: Soft Tissue Mass, Biopsy CLINICAL HISTORY: 1). PELVIC MASS FINAL DIAGNOSIS: Pelvic Mass, Image-Guided Biopsies: Atypical B-lymphoid infiltrates, consistent with Mantle cell lymphoma, see microscopic description. ICD10: C85.9 GROSS DESCRIPTION: The specimen is received in one formalin filled container labeled with the patient's name, sublabeled "pelvic mass" and consists of 3 fragmented pink to rasmussen-hoyos cylindrical shaped portions of tissue which aggregate to 1.1 x 0.1 x 0.1 CM. The specimen is entirely submitted in one cassette. 12/27/2016 DAC MICRO DESCRIPTION: Microscopic examination reveals fibrous tissue with atypical lymphoid infiltrates, composed of small and intermediate sized lymphocytes and associated necrosis. Few mitotic figures also identified. The patient has history of Mantle cell lymphoma. A limited immunohistochemical panel was performed on the current atypical lymphoid infiltrates with the following results: The atypical lymphocytes are positive for CD20 and Cyclin-D1, negative for CD5, and with an increased proliferation marker Ki-67, approximately 40%-50%. This immunohistochemical profile is in keeping with the patient's Mantle cell lymphoma immunophenotype (CD5 negative Mantle cell lymphoma), which represents an unusual variant of Mantle cell lymphoma. High proliferation, 40%-50%, is considered overall a poor prognostic indicator and does not by morphology support a blastoid-type Mantle cell lymphoma. These results were discussed with Dr. Hernandez on 12/29/2016 at 10:50 a.m. ICD-9 CODES: CPT CODES: 1: 22763, 98889, 73614, 30201, 96135 Electronically Signed Out Indu Peoples M.D.,[facility] [address], [place] [address] Technical component performed at [facility], [address], [place], [address]
--- NOTE | 2016-12-29 18:07 | DRSVH ---
PROCEDURE: X-RAY CHEST ONE VIEW, PORTABLE ([id number]) INDICATIONS: dyspnea TECHNIQUE: One view of the chest was acquired. COMPARISON: [facility], CR, XR CHEST 1VW (PORTABLE), 12/29/2016, 2:16. FINDINGS: Surgical changes and devices: Right chest wall Port-A-Cath is stable. Lungs and pleura: No pleural effusions or pneumothorax. Lungs are clear. Mediastinum: Mediastinal contours appear normal. Heart size is normal. Bones and chest wall: No suspicious bony lesions. Overlying soft tissues appear unremarkable. IMPRESSION: No acute cardiopulmonary disease process. Dictated by: Carlene Perez MD, PhD on 12/29/2016 at 18:05 Approved by: Carlene Perez MD, PhD on 12/29/2016 at 18:06
--- NOTE | 2016-12-29 18:16 | NUR ---
oxygenation/trf to [facility] Pt was on 2-3L oxy mask maintaining 95-97% Sp02 through most of shift and would desaturate into the 70s with removal of mask. Pt had mild inspiratory and expiratory bilateral crackles in the morning. Pt was running sodium bicarb at 100mls/hr and began to have audible crackles, coughing up frothy pink rust-like sputum and increasing oxygen demand. Pt was placed in upright position and oxygen was increased to 6L via oxy mask; Sp02 increased to 92-94%. MD notified. 1710 administered 40mg IV lasix with less than 50ml of output. Stat chest xray taken. Pt continued to have audile crackles. continue to monitor and requested that patient be transferred to PCC. VS: BP 110/75, P 112, Sp02 92% on 6L oxymask, RR 34
--- NOTE | 2016-12-29 20:05 | PCM.PNMED ---
Subjective Date of Service Dec 29, 2016 Subjective yesterday afternoon and overnight events: bicarbonate drip discontinued and lasix 40 mg iv given for fluid overload ( evidenced by dyspnea and desating to mid 70's,coughing up pinkinsh sputum,CXR consistent with congestion) .He also was started on broad spectrum antibiotics with cefepime and vancomycin 1 dose due to worsening leukocytosis with no steroid use and bacteremia in 1/4 bottles which eventually turned out to be coag negative .His UOP remained low overnight and today ,kidney functions continues to worsen. today's events:urine PH remained acidotic and bicarb drip 1/2NS 100meq at 100ml restarted.UOP remained not much changed but patient became dyspneic and started to cough.stopped bicarb drip,lasix 40mg iv given and transferred to [facility] for posssible BIPAP support after repeat ACP discussion with patient in the morning patient opted for DNR/ DNI Exam Vital Signs Vital Sign - Last Date Time Temp Pulse Resp B/P Pulse Ox O2 Delivery O2 Flow Rate FiO2 12/29/16 17:45 34 92 OxyMask 6.00 12/29/16 17:24 112 110/75 12/29/16 13:27 36.5 Intake and Output 12/28/16 12/28/16 12/29/16 Cumulative From/Thru 15:00 23:00 07:00 12/26/16 13:25 - 12/29/16 06:11 Intake Total 460 ml 200 ml 500 ml 7066 ml Output Total 450 ml 125 ml 2150 ml Balance 460 ml -250 ml 375 ml 4916 ml Intake Oral 200 ml 500 ml 1500 ml IV Total 460 ml 5566 ml Output Urine Total 450 ml 125 ml 2000 ml Emesis 150 ml # Bowel Movements 1 1 3 Exam Gen. Cachectic patient in moderate respiratory distress ,lethargic but open his eyes when called HEENT: Dry buccal mucosa, Head is normocephalic atraumatic, sunken eye balls Lungs clear to auscultation bilaterally Heart regular rate and rhythm without murmurs gallops or rubs Abdomen distended with irregular feeling masses Extremities pulses are present dorsalis pedis posterior tibialis and radial. Skin is warm and dry there are no rashes, Psych alert and oriented to person place and time Neuro cranial nerves II through XII are grossly intact Lymph: There is no lymphadenopathy appreciated in the cervical supra infraclavicular regions gamez in place IVs and Medications Medications Reviewed: Medications were reviewed in detail Lab and Diagnostics Result Diagram: 12/29/1615 12/29/1615 X-Rays, CTs and MRIs PROCEDURE: CT CHEST, ABDOMEN AND PELVIS WITHOUT CONTRAST ([id number]) INDICATIONS: LYMPHOMA, ABDOMINAL PAIN IMPRESSION: 1. Marked interval progression of disease compared to 12.5.16. 2. Several new right lung masses, presumably reflecting pulmonary lymphoma. 3. Multiple new peritoneal masses, as well as peritoneal nodularity and ascites , indicating peritoneal carcinomatosis. 4. Intrahepatic masses are present, consistent with lymphoma. Dictated by: Kayla Bartholomew M.D. on 12/22/2016 at 9:50 PROCEDURE: US GUIDED BIOPSY ABDOMEN/RETROPERITONEUM INDICATIONS: biopsy of pelvic LN IMPRESSION: Successful sonographically guided percutaneous biopsy involving the predominantly solid mass within the inferior pelvis. Dictated by: Isra LOBATO Interpreted: Carlene Perez MD on 12/27/2016 at 12:32 PROCEDURE: US RENAL SONOGRAM INDICATIONS: Shannan ,r/o obstruction TECHNIQUE: Real-time scanning was performed of the kidneys and bladder, with image documentation. COMPARISON: [facility], US, ABDOMEN LTD, 12/26/2016, 14:41. [facility], CT, CT CHEST ABD PELVIS WO CON, 12/22/2016, 8:09. FINDINGS: Kidneys: Kidneys are normal in size. Right kidney measures 11.0 cm long; left kidney measures 12.2 cm long. Right renal cortical thickness is 1.4 cm; left renal cortical thickness is 1.4 cm. Renal cortical echotexture is normal. No hydronephrosis or nephrolithiasis. No suspicious solid mass lesions. Bladder: Pre-void bladder volume is 288 mL. Post-void residual is 190 mL. Pre -void images demonstrate no intraluminal masses or stones. On pre-void images, and ureteral jets are noted with color Doppler interrogation. (Of note, ureteral jets may not be detectable in up to 25% of cases due to insufficient differences in specific gravity between ureteral and bladder urine). Miscellaneous: No free pelvic fluid. Mild ascites. IMPRESSION: 1. No hydronephrosis. 2. Mild ascites. 3. Moderate 90 cc PVR recorded. Cardiac Echo Impressions Echocardiogram Report Interpretation Summary The ejection fraction is estimated to be 35-40%. Septal motion is consistent with conduction abnormality. There is inferior wall severe hypokinesis. There is no significant valvular heart disease. Compared to the prior echo report on 2016, there is no significant change. Electronically signed by: Neville Caba on Reading Physician:12/27/2016 04:51 PM echo 12/27 The ejection fraction is estimated to be 35-40%. Septal motion is consistent with conduction abnormality. There is inferior wall severe hypokinesis. There is no significant valvular heart disease. Compared to the prior echo report on 2015, there is no significant change. Additional Diagnostics US RENAL SONOGRAM IMPRESSION: 1. No hydronephrosis. 2. Mild ascites. 3. Moderate 90 cc PVR recorded. 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 patient clinically looks intravascular depleted and needs IV for SHANNAN due hypercalcemia and TLS.He was initially given 1 L fluid and was put on bicarb drip at 100ml. Adequate fluid admisnistration for hypercalcemia and TLS has been proven very difficult on this patient. We had to hold his fluids and give lasix 40mg iv which may help with hypercalcemia but will eventually be playing against the management of TLS which seems to be the bigger component of SHANNAN.hyperuricemia seems to be controlled by Rasburicase 1 dose which responded from UA 14 to 4 . -I think patient is intravascular depleted and is the main etiology of SHANNAN. Ideally we should give more fluid but systolic dysfunction with EF 35-40% is the limiting factor . clinical and cxr pulm edema requiring stopping fluid and giving lasix 40 iv x2 .I had a lengthy discussion with Dr Pearce and Dr Barreto. per Dr Carvajal patient not a candidate for ACID DIPPER. -Due to hypercalcemia of malignancy and spontaneous TLS -initial Bolus 1 L normal saline . Initially started on bicarb 100meq at 150ml/h. Discontinued 12/28 due to fluid overload. - home Lasix 20 mg switched to 40 mg IV daily as above , hold hold Aldactone -Received zometa 3mg x1 on 12/26 -Received Rasburicase 7.5mg 12/27 -cr continues to worsen -f/u CMP in am -allopurinol 300mg daily,lowered to 100mg daily today 12/29 -Discussed with oncology # Acute hypercalcemia -initial corrected ca 13.6 ,improved to 12.5 -Management as above # Acute spontaneous TLS -initial uric acid 14.1 improved to 4 after Rasburicase -Management as above -urine PH remained acidotic but bicarb drip dcd due to fluid overload.may consider concentrating the bicarb drip if resumed # acute hypoxic respiratory failure due to acute on chronic systolic CHF ,mx as above -patient desats to mid 70's,never used home O2 -transferred to PCU for possible BIPAP support if respiratory status worsens # Altered mental state due SHANNAN,hypoxic failure ,patient lethargic today # Gram-positive bacteremia -1 out of 4 blood cultures growing gram-positive coccus which eventually turned out to be coag negative staph. initially empirically started on cefepime and vancomycin x1 dose -Repeat blood culture negative -Worsening leukocytosis noted,will keep cefepime but probably no infection here -initial Pro calcitonin 0.82. Source possibly pneumonia if at all . Port infection unlikely ..most likely contaminant # Mantle cell lymphoma ,Rapidly progressing , initially suspected transformation.repeat biopsy on current admission prelim report shows same mantle cell lymphoma per Dr Barreto. -underwent US guided biopsy today 12/27 -2 nd line Chemotherapy ibritumomab orally is ordered by son with copay of about $ 2000 today from [facility] and son says he was told medication will be available tomorrow. 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 Discontinued IV fluid/bicarbonate drip and gave Lasix 40 mg IV as stated above. Dyspnea improved. -repeat echo unchanged,EF 35-40% -Repeat echo unchanged -Continue carvedilol , Lasix as above , hold Aldactone -BNP 1300 # anemia -due to lymphoma -f/u cbc in am Patient admitted under inpatient status with expected length of stay > 2 midnights for severity of present symptoms, complexities of treatment plan and risk for adverse events DNR /DNI POLST form filled ,patient signed,sons in agreement names his son Willie hernandez POA ,tel [phone] VTE Mechanical Devices: Intermittant Pneumatic CD Resuscitation Status: DNR/DNI:Do Not Resuscitate/Intubate Matt Mann MD Dec 29, 2016 20:05
--- NOTE | 2016-12-30 00:06 | NUR ---
HIGH FLOW Pt began to de-sat in the 70's with 6L oxy-mask, increased to 15L oxy-mask and sated in the mid 80's. RT called to administer high flow 60L @ 100% pt sating mid 90's. Oral and nasopharyngeal suction administered by RN and RT with large amounts of brownish fluid obtained.
[2016-12-30] MEDS: Heparin 5,000 Unit/mL Inj SUBQ SCH ×2 (00:30→07:52)
[2016-12-30 00:41] VITALS: RESP 28
[2016-12-30] MEDS: SODIUM CHLORIDE 0.45% IV SCH (00:42)
[2016-12-30] MEDS: SODIUM BICARB IV SCH (00:42)
--- NOTE | 2016-12-30 00:59 | PCM.PNMED ---
Subjective Date of Service Dec 30, 2016 Subjective Called to bedside to discuss options for comfort care. Sons at bedside. As per family and patient, patient has expressed his wishes to move to comfort care. Discussing with Mr. Leone he is aware of his condition and what it means to transition to comfort care. He does not wish to wait for a different treatment to work and wishes to be made comfortable. His family agrees that this and that comfort care is consistent with prior wishes. Exam Vital Signs Vital Sign - Last Date Time Temp Pulse Resp B/P Pulse Ox O2 Delivery O2 Flow Rate FiO2 12/30/16 00:41 110 28 Nasal Cannula 60 100 12/29/16 23:51 36.5 95/58 98 Intake and Output 12/29/16 12/29/16 12/30/16 Cumulative From/Thru 15:00 23:00 07:00 12/26/16 13:25 - 12/29/16 20:34 Intake Total 100 ml 7166 ml Output Total 2150 ml Balance 100 ml 5016 ml Intake Oral 1500 ml IV Total 100 ml 5666 ml Output Urine Total 2000 ml Emesis 150 ml # Bowel Movements 3 Lab and Diagnostics Result Diagram: 12/29/16 0515 12/29/16 0515 X-Rays, CTs and MRIs PROCEDURE: CT CHEST, ABDOMEN AND PELVIS WITHOUT CONTRAST ([id number]) INDICATIONS: LYMPHOMA, ABDOMINAL PAIN IMPRESSION: 1. Marked interval progression of disease compared to 12.5.16. 2. Several new right lung masses, presumably reflecting pulmonary lymphoma. 3. Multiple new peritoneal masses, as well as peritoneal nodularity and ascites , indicating peritoneal carcinomatosis. 4. Intrahepatic masses are present, consistent with lymphoma. Dictated by: Kayla Bartholomew M.D. on 12/22/2016 at 9:50 PROCEDURE: US GUIDED BIOPSY ABDOMEN/RETROPERITONEUM INDICATIONS: biopsy of pelvic LN IMPRESSION: Successful sonographically guided percutaneous biopsy involving the predominantly solid mass within the inferior pelvis. Dictated by: Isra LOBATO Interpreted: Carlene Perez MD on 12/27/2016 at 12:32 PROCEDURE: US RENAL SONOGRAM INDICATIONS: Shannan ,r/o obstruction TECHNIQUE: Real-time scanning was performed of the kidneys and bladder, with image documentation. COMPARISON: [facility], US, ABDOMEN LTD, 12/26/2016, 14:41. [facility], CT, CT CHEST ABD PELVIS WO CON, 12/22/2016, 8:09. FINDINGS: Kidneys: Kidneys are normal in size. Right kidney measures 11.0 cm long; left kidney measures 12.2 cm long. Right renal cortical thickness is 1.4 cm; left renal cortical thickness is 1.4 cm. Renal cortical echotexture is normal. No hydronephrosis or nephrolithiasis. No suspicious solid mass lesions. Bladder: Pre-void bladder volume is 288 mL. Post-void residual is 190 mL. Pre -void images demonstrate no intraluminal masses or stones. On pre-void images, and ureteral jets are noted with color Doppler interrogation. (Of note, ureteral jets may not be detectable in up to 25% of cases due to insufficient differences in specific gravity between ureteral and bladder urine). Miscellaneous: No free pelvic fluid. Mild ascites. IMPRESSION: 1. No hydronephrosis. 2. Mild ascites. 3. Moderate 90 cc PVR recorded. Cardiac Echo Impressions Echocardiogram Report Interpretation Summary The ejection fraction is estimated to be 35-40%. Septal motion is consistent with conduction abnormality. There is inferior wall severe hypokinesis. There is no significant valvular heart disease. Compared to the prior echo report on 2016, there is no significant change. Electronically signed by: Neville Caba on Reading Physician:12/27/2016 04:51 PM echo 12/27 The ejection fraction is estimated to be 35-40%. Septal motion is consistent with conduction abnormality. There is inferior wall severe hypokinesis. There is no significant valvular heart disease. Compared to the prior echo report on 2016, there is no significant change. Additional Diagnostics US RENAL SONOGRAM IMPRESSION: 1. No hydronephrosis. 2. Mild ascites. 3. Moderate 90 cc PVR recorded. 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 Family agrees that this decision is consistent with patient's prior goals of care. Discussions throughout the day 12/29 with family regarding this decision. -comfort care order set in place. # Acute kidney failure,worsening -patient initially came due to SHANNAN due to hypercalcemia of malignancy and spontaneous TLSwith Cr 1.97.his RFT continues to worsen Cr currently at 3.43. patient clinically looks intravascular depleted and needs IV for SHANNAN due hypercalcemia and TLS.He was initially given 1 L fluid and was put on bicarb drip at 100ml. Adequate fluid admisnistration for hypercalcemia and TLS has been proven very difficult on this patient. We had to hold his fluids and give lasix 40mg iv which may help with hypercalcemia but will eventually be playing against the management of TLS which seems to be the bigger component of SHANNAN.hyperuricemia seems to be controlled by Rasburicase 1 dose which responded from UA 14 to 4 . -I think patient is intravascular depleted and is the main etiology of SHANNAN. Ideally we should give more fluid but systolic dysfunction with EF 35-40% is the limiting factor . clinical and cxr pulm edema requiring stopping fluid and giving lasix 40 iv x2 .I had a lengthy discussion with Dr Pearce and Dr Barreto. 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 -Due to hypercalcemia of malignancy and spontaneous TLS -initial Bolus 1 L normal saline . Initially started on bicarb 100meq at 150ml/h. Discontinued 12/28 due to fluid overload. - home Lasix 20 mg switched to 40 mg IV daily as above , hold hold Aldactone -Received zometa 3mg x1 on 12/26 -Received Rasburicase 7.5mg 12/27 -cr continues to worsen -f/u CMP in am -allopurinol 300mg daily,lowered to 100mg daily today 12/29 -Discussed with oncology # Acute hypercalcemia -initial corrected ca 13.6 ,improved to 12.5 -Management as above # Acute spontaneous TLS -initial uric acid 14.1 improved to 4 after Rasburicase -Management as above -urine PH remained acidotic but bicarb drip dcd due to fluid overload.may consider concentrating the bicarb drip if resumed # acute hypoxic respiratory failure due to acute on chronic systolic CHF ,mx as above -patient desats to mid 70's,never used home O2 -transferred to PCU for possible BIPAP support if respiratory status worsens # Altered mental state due SHANNAN,hypoxic failure ,patient lethargic today # Gram-positive bacteremia -1 out of 4 blood cultures growing gram-positive coccus which eventually turned out to be coag negative staph. initially empirically started on cefepime and vancomycin x1 dose -Repeat blood culture negative -Worsening leukocytosis noted,will keep cefepime but probably no infection here -initial Pro calcitonin 0.82. Source possibly pneumonia if at all . Port infection unlikely ..most likely contaminant # Mantle cell lymphoma ,Rapidly progressing , initially suspected transformation.repeat biopsy on current admission prelim report shows same mantle cell lymphoma per Dr Barreto. -underwent US guided biopsy today 12/27 -2 nd line Chemotherapy ibritumomab orally is ordered by son with copay of about $ 2000 today from [facility] and son says he was told medication will be available tomorrow. 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 Discontinued IV fluid/bicarbonate drip and gave Lasix 40 mg IV as stated above. Dyspnea improved. -repeat echo unchanged,EF 35-40% -Repeat echo unchanged -Continue carvedilol , Lasix as above , hold Aldactone -BNP 1300 # anemia -due to lymphoma -f/u cbc in am Patient admitted under inpatient status with expected length of stay > 2 midnights for severity of present symptoms, complexities of treatment plan and risk for adverse events DNR /DNI POLST form filled ,patient signed,sons in agreement names his son Willie as POA ,tel [phone] VTE Mechanical Devices: Intermittant Pneumatic CD Resuscitation Status: DNR/DNI:Do Not Resuscitate/Intubate Keiry Zuniga DO Dec 30, 2016 00:59
--- NOTE | 2016-12-30 01:02 | NUR ---
COMFORT CARE Pt requested to speak with the MD about end of life care. Family called to be with pt. Discussion was made with family in the room. Pt opted to go on comfort care. Addendum: 12/30/16 at 0507 by KEMI HAN RN Pt has been receiving 2mg IV morphine, 1mg Lorazepam Q1. Pt only responds to painful stimuli @ this time.
[2016-12-30] MEDS: Ondansetron 2 mg/mL 2 mL Inj IVPUSH PRN (01:36)
[2016-12-30] MEDS ORDERED: Ondansetron 2 mg/mL 2 mL Inj IVPUSH PRN (02:15)
[2016-12-30] MEDS ORDERED: Artificial Tears 15 mL Ophthalmic Solution AFFECT_EYE PRN (02:15)
[2016-12-30] MEDS ORDERED: Atropine 1% 5 mL Ophthalmic Solution PO PRN (02:15)
[2016-12-30] MEDS: Albuterol-Ipratropium 3 mL Inhalation Solution NEB SCH ×2 (02:30→07:52)
[2016-12-30] MEDS: LORazepam 2 mg/mL Inj ANXIETY/AGIT IVPUSH PRN ×4 (02:32→05:32)
[2016-12-30] MEDS ORDERED: Furosemide 10 mg/mL 10 mL Inj IVPUSH ONE (03:30)
[2016-12-30] MEDS: Cefepime Inj 1,000 MG in Dextrose 5% Minibag Plus 50 ML IV SCH (07:52)
[2016-12-30] MEDS ORDERED: Morphine 100 mg/100 mL NS 100 MG in IV Premix 1 EACH IV SCH (09:30)
[2016-12-30] MEDS: 0.9% Sodium Chloride 250 ML IV SCH (10:15)
--- NOTE | 2016-12-30 10:47 | NUR ---
Palliative Care Palliative Care received order from Dr Mann 12/29/16 (late in day) to assist with goals of care. Patient has since been made comfort care. Patient is a 71 year old man with advanced lymphoma. He was admitted 12/26/16. Patient lives at home alone. Willie Leone (son/DPOA) [phone] Palliative Care to follow. Princess Sosa
--- NOTE | 2016-12-30 10:49 | NUR ---
Comfort Patient somnolent , minimally responsive. Feldt pain scale of 3. Morphine drip started at 1 mg/hr. Family states pt appears comfortable. Will continue to monitor for s/sx discomfort/pain.
--- NOTE | 2016-12-30 11:25 | NUR ---
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 Patient requested to be placed on comfort care per Dr. Zuniga's progress note. Upon entrance into the room you could hear audible gurgling. Patient's eyes were closed, patient appears to be actively dying and I opted not to disturb this patient. Will provide assistance as needed.
--- NOTE | 2016-12-30 11:34 | PCM.PNMED ---
Subjective Date of Service Dec 30, 2016 Subjective The patient is obtunded and appears to be expiring. ROS and subjective are not obtainable. There is currently no family at the bedside Exam Vital Signs Vital Sign - Last Date Time Temp Pulse Resp B/P Pulse Ox O2 Delivery O2 Flow Rate FiO2 12/30/16 03:05 Supplement Oxygen 12/30/16 00:41 110 28 60 100 12/29/16 23:51 36.5 95/58 98 Intake and Output 12/29/16 12/29/16 12/30/16 Cumulative From/Thru 15:00 23:00 07:00 12/26/16 13:25 - 12/30/16 03:05 Intake Total 100 ml 7166 ml Output Total 2150 ml Balance 100 ml 5016 ml Intake Oral 1500 ml IV Total 100 ml 5666 ml Output Urine Total 2000 ml Emesis 150 ml # Bowel Movements 3 Exam The patient appears to be actively dying. He is obtunded. He is gasping for breath. Lungs normal for scatter rhonchi, increased right and labor Heart is tachycardic without murmur Abdomen is nontender. Extremities are free of edema. Skin is free of rash or lesions. Patient is cachectic. IVs and Medications Medications Reviewed: Medications were reviewed in detail Lab and Diagnostics Result Diagram: 12/29/1651412/29/16514 X-Rays, CTs and MRIs PROCEDURE: CT CHEST, ABDOMEN AND PELVIS WITHOUT CONTRAST ([id number]) INDICATIONS: LYMPHOMA, ABDOMINAL PAIN IMPRESSION: 1. Marked interval progression of disease compared to 12.5.16. 2. Several new right lung masses, presumably reflecting pulmonary lymphoma. 3. Multiple new peritoneal masses, as well as peritoneal nodularity and ascites , indicating peritoneal carcinomatosis. 4. Intrahepatic masses are present, consistent with lymphoma. Dictated by: Kayla Bartholomew M.D. on 12/22/2016 at 9:50 PROCEDURE: US GUIDED BIOPSY ABDOMEN/RETROPERITONEUM INDICATIONS: biopsy of pelvic LN IMPRESSION: Successful sonographically guided percutaneous biopsy involving the predominantly solid mass within the inferior pelvis. Dictated by: Isra LOBATO Interpreted: Carlene Perez MD on 12/27/2016 at 12:32 PROCEDURE: US RENAL SONOGRAM INDICATIONS: Shannan ,r/o obstruction TECHNIQUE: Real-time scanning was performed of the kidneys and bladder, with image documentation. COMPARISON: [facility], US, ABDOMEN LTD, 12/26/2016, 14:41. [facility], CT, CT CHEST ABD PELVIS WO CON, 12/22/2016, 8:09. FINDINGS: Kidneys: Kidneys are normal in size. Right kidney measures 11.0 cm long; left kidney measures 12.2 cm long. Right renal cortical thickness is 1.4 cm; left renal cortical thickness is 1.4 cm. Renal cortical echotexture is normal. No hydronephrosis or nephrolithiasis. No suspicious solid mass lesions. Bladder: Pre-void bladder volume is 288 mL. Post-void residual is 190 mL. Pre -void images demonstrate no intraluminal masses or stones. On pre-void images, and ureteral jets are noted with color Doppler interrogation. (Of note, ureteral jets may not be detectable in up to 25% of cases due to insufficient differences in specific gravity between ureteral and bladder urine). Miscellaneous: No free pelvic fluid. Mild ascites. IMPRESSION: 1. No hydronephrosis. 2. Mild ascites. 3. Moderate 90 cc PVR recorded. Cardiac Echo Impressions Echocardiogram Report Interpretation Summary The ejection fraction is estimated to be 35-40%. Septal motion is consistent with conduction abnormality. There is inferior wall severe hypokinesis. There is no significant valvular heart disease. Compared to the prior echo report on 2016, there is no significant change. Electronically signed by: Neville Caba on Reading Physician:12/27/2016 04:51 PM echo 12/27 The ejection fraction is estimated to be 35-40%. Septal motion is consistent with conduction abnormality. There is inferior wall severe hypokinesis. There is no significant valvular heart disease. Compared to the prior echo report on 2016, there is no significant change. Additional Diagnostics US RENAL SONOGRAM IMPRESSION: 1. No hydronephrosis. 2. Mild ascites. 3. Moderate 90 cc PVR recorded. 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 Family agrees that this decision is consistent with patient's prior goals of care. Discussions throughout the day 12/29 with family regarding this decision. -comfort care order set in place. The patient appears to be actively dying at this point. Palliative Care has been involved in assisting with medication management. # Acute kidney failure,worsening . This is likely related primarily to acute tumor lysis syndrome. - # Acute hypercalcemia, worsening. Comfort care. # Acute spontaneous TLS . Comfort care. # acute hypoxic respiratory failure due to acute on chronic systolic CHF ,mx as above. Worsening. Comfort care. # Altered mental state (toxic encephalopathy) due SHANNAN,hypoxic failure ,patient lethargic today # Gram-positive bacteremia (septicemia versus contaminant). Will follow cultures. -1 out of 4 blood cultures growing gram-positive coccus which eventually turned out to be coag negative staph. initially empirically started on cefepime and vancomycin x1 dose -Repeat blood culture negative -Worsening leukocytosis noted,will keep cefepime but probably no infection here -initial Pro calcitonin 0.82. Source possibly pneumonia if at all . Port infection unlikely ..most likely contaminant # Mantle cell lymphoma ,Rapidly progressing , initially suspected transformation.repeat biopsy on current admission prelim report shows same mantle cell lymphoma per Dr Barreto. -underwent US guided biopsy today 12/27 -2 nd line Chemotherapy ibritumomab orally is ordered by son with copay of about $ 2000 today from [facility] and son says he was told medication will be available tomorrow. .Dr Barreto to decide when to start oral chemo per clinical state in the coming few days # JAK2 essential thrombocytosis -Continue aspirin 81 mg by mouth twice a day # anemia -due to lymphoma -f/u cbc in am Patient admitted under inpatient status with expected length of stay > 2 midnights for severity of present symptoms, complexities of treatment plan and risk for adverse events DNR /DNI POLST form filled ,patient signed,sons in agreement names his son Willie as LOTUS ,tel [phone] VTE Mechanical Devices: Intermittant Pneumatic CD Resuscitation Status: DNR/DNI:Do Not Resuscitate/Intubate James Greer MD Dec 30, 2016 11:34
--- NOTE | 2016-12-30 13:34 | PCM.CONPAL ---
Date of Service Dec 30, 2016 Date of Hospital Admission: Dec 26, 2016 at 16:54 Date of Palliative Consult: Dec 30, 2016 Requesting Provider: Matt Mann MD Reason Palliative Care Consult: w/d Life Prolonging Interventions, Other ( comfort care) Hospital Unit @time of consult: Progressive Care Palliative Care Recommendation Unfortunate gentleman with mantle cell lymphoma; now proceeding to comfort care per his and family wishes. Summary of palliative recommendations: -Symptom management (Pain/other)- start drip of MS, 1 mg/hr, adjust as needed. Other comfort meds per protocol. DC all non-comfort meds/treatments. We will follow and adjust as needed. -DPOA/Advanced Directives/POLST- now DNR/DNI/comfort (Brevity of note secondary to Dragon system failure) Problems: End of Life Preferences Comfort care Disposition Expected to here within 24-48 hours. Resuscitation Status Resuscitation Status: DNR/DNI:Do Not Resuscitate/Intubate POLST Updates/Changes Previous POLST?: No . Advanced Care Planning Address: Comfort care Pain: None Symptom management: Drowsiness/sleepiness Pt History History of Present Illness Per admission H+P: Unfortunate 71-year-old gentleman with past medical history of atypical lymphoblastic leukemia diagnosed in 1999 and underwent R-CHOP chemotherapy and went into remission with subsequent diagnosis of chemotherapy related non ischemic cardiomyopathy with ejection fraction of 35-40%. 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 In 2015 he presented with intussusception and was diagnosed with mantle cell lymphoma involving terminal ileum. He was getting chemotherapy with Dr. Barreto and responding. He has been progressively feeling fatigued/generalized weakness for the last 3 weeks. He also noted that he is having progressive abdominal distention for the last 2 weeks. He was evaluated by Dr. Barreto and on repeat imaging was found to have dramatic deterioration with many large new masses in the abdominal cavity; one being about 9 cm in size in the central anterior pelvis; another one in the higher right hemipelvis; and some retroperitoneal nodes and thickening of the bowel as well as new lung mass in the right hilar area.He also was noted to have progressively worsening SHANNAN and hypercalcemia. He was given IV fluids at cancer [facility] and outpatient biopsy of new masses was being arranged . He continued to have the above symptoms and worsening SHANNAN and hypercalcemia which prompted referral to ED In the last 24 hours deteriorated sharply, and patient and family have made decision to transition to comfort care. Palliative med consulted to assist with care. Prior to visiting I reviewed records in detail, spoke w his nurse and oncologist. Sons departed for day- will speak with them on their return. Patient obtunded; resp agonal; actively dying on my initial eval. 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/independent POLST at Time of Admission Previous POLST?: No Allergy Allergies Reviewed: Yes Medications Current Medications: Current Medications Furosemide 40 mg DAILY IVPUSH; Start 12/29/16 at 08:30; Stop 12/29/16 at 08:30; Status DC Albuterol/ Ipratropium 3 ml 3 ml Q6 NEB Last administered on 12/29/16 20:11; Admin Dose 3 ML; Start 12/28/16 at 14:30; Stop 12/30/16 at 09:31; Status DC Sodium Chloride 250 ml @ 10 mls/hr Q24H IV; Start 12/28/16 at 14:55 Benzonatate 100 mg 100 mg TID PRN PO Last administered on 12/29/16 16:30; Admin Dose 100 MG; Start 12/28/16 at 20:00; Stop 12/30/16 at 09:31; Status DC Sodium Bicarbonate/ Sodium Chloride 1,100 ml @ 100 mls/hr Q11H IV Last administered on 12/29/16 11:02; Admin Dose 100 MLS/HR; Start 12/29/16 at 08:15 ; Stop 12/30/16 at 09:31; Status DC Allopurinol 100 mg DAILY PO; Start 12/30/16 at 08:30; Stop 12/30/16 at 09:31; Status DC Morphine Sulfate 2 mg Q4H PRN IVPUSH Last administered on 12/30/16 07:35; Admin Dose 2 MG; Start 12/29/16 at 16:10; Stop 12/30/16 at 09:33; Status DC Morphine Sulfate 2 mg Q1H PRN IVPUSH; Start 12/30/16 at 02:15 Lorazepam 1 mg Q1H PRN IVPUSH Last administered on 12/30/16 05:32; Admin Dose 1 MG; Start 12/30/16 at 02:15 Ondansetron HCl Start with 4 mg, if ... Q4H PRN IVPUSH; Start 12/30/16 at 02:15 Atropine Sulfate Start with 2 drops, if ... Q1H PRN PO Last administered on 04:31; Admin Dose 2 DRP; Start 12/30/16 at 02:15 Artificial Tears 1 drop Q1H PRN AFFECT_EYE Last administered on 12/30/16 03:27 ; Admin Dose 1 DROP; Start 12/30/16 at 02:15 Diphenhydramine HCl 25 mg Q4H PRN IVPUSH; Start 12/30/16 at 02:15; Stop at 09:31; Status DC Scopolamine 1.5 mg Q3D@0330 TOPICAL Last administered on 12/30/16 03:44; Admin Dose 1.5 MG; Start 12/30/16 at 03:30 Scheduled ([Ivig]) Unknown Dose IV every 2 months Aspirin (Aspirin) 81 Mg Tablet 81 MG PO BIDWM Carvedilol (Carvedilol) 12.5 Mg Tablet 12.5 MG PO BID Cholecalciferol (Vitamin D3) (Vitamin D3) 3,000 Unit Tablet 3,000 UNIT PO HS Cyanocobalamin (Vitamin B-12) (Vitamin B-12) 500 Mcg Tab.subl 500 MCG SL DAILY Furosemide (Furosemide) 20 Mg Tab 20 MG PO DAILY Multivitamin (Multi Vitamin Daily) 1 Each Tablet 1 EACH PO HS Rituximab (Rituxan) 100 Mg/10 Ml Vial Unknown Dose IV EVERY 2 MONTHS Spironolactone (Aldactone) 25 Mg Tablet 12.5 MG PO DAILY Objective Findings Exam Vital Sign - Last Date Time Temp Pulse Resp B/P Pulse Ox O2 Delivery O2 Flow Rate FiO2 12/30/16 03:05 Supplement Oxygen 12/30/16 00:41 110 28 60 100 12/29/16 23:51 36.5 95/58 98 Intake and Output 12/29/16 12/29/16 12/30/16 Cumulative From/Thru 15:00 23:00 07:00 12/26/16 13:25 - 12/30/16 03:05 Intake Total 100 ml 7166 ml Output Total 2150 ml Balance 100 ml 5016 ml Intake Oral 1500 ml IV Total 100 ml 5666 ml Output Urine Total 2000 ml Emesis 150 ml # Bowel Movements 3 Objective Cachectic. Pale. Labored resp. VS noted. Lungs w crackles, cor reg. Abd rounded. Ext w muscle atrophy. Lab/Diagnostics Lab and Imaging results reviewed in detail in EMR. Time spent Total time 65 minutes; >50% face to face with patient providing counselling regarding plans and recommendations, and in care coordination with his medical teams. Neeraj Preciado MD Dec 30, 2016 13:34
--- NOTE | 2016-12-30 14:39 | NUR ---
Social Work: Updating Note D: Pt discussed in am rounds. Pt was transferred to [facility] overnight due to decline in clinical status. Pt is now comfort care and declining rapidly, per MD team. Pt is anticipated to at [facility] within 24-48 hours. Per RN, pt's family is requesting to speak to social work. RAILROAD AUDITOR met with pt's family at bedside. They state that at this time with pt's current status, they no longer have any questions and are just waiting for him to pass. They have made arrangement for the pt already and declined any other resources/needs at this time. RAILROAD AUDITOR offered [facility] services however family declined them at this time. Case Management Contact Info Provided. A: Pt who is now comfort care. P: Anticipate pt to at [facility] ANN Xiong
--- NOTE | 2016-12-30 16:57 | PCM.DC.MEX ---
Discharge Summary Date of Service Dec 30, 2016 Dates of Hospitalization Date of Hospital Admission Dec 26, 2016 at 16:54 Date of Expiration: Dec 30, 2016 Time of Expiration: 16:22 Providers: Admitting Physician: Matt Mann MD Primary Care Physician: Dorian Jackson DO Attending Physician: Matt Mann MD Diagnosis at Time of Acute respiratory failure with hypoxia Acute systolic heart failure Chronic systolic heart failure. Acute renal failure Tumor lysis syndrome. Mantle cell lymphoma Consultations Oncology, Dr. Barreto Procedures XRay, CTs & MRIs PROCEDURE: CT CHEST, ABDOMEN AND PELVIS WITHOUT CONTRAST ([id number]) INDICATIONS: LYMPHOMA, ABDOMINAL PAIN IMPRESSION: 1. Marked interval progression of disease compared to 12.5.16. 2. Several new right lung masses, presumably reflecting pulmonary lymphoma. 3. Multiple new peritoneal masses, as well as peritoneal nodularity and ascites , indicating peritoneal carcinomatosis. 4. Intrahepatic masses are present, consistent with lymphoma. Dictated by: Kayla Bartholomew M.D. on 12/22/2016 at 9:50 PROCEDURE: US GUIDED BIOPSY ABDOMEN/RETROPERITONEUM INDICATIONS: biopsy of pelvic LN IMPRESSION: Successful sonographically guided percutaneous biopsy involving the predominantly solid mass within the inferior pelvis. Dictated by: Isra LOBATO Interpreted: Carlene Perez MD on 12/27/2016 at 12:32 PROCEDURE: US RENAL SONOGRAM INDICATIONS: Shannan ,r/o obstruction TECHNIQUE: Real-time scanning was performed of the kidneys and bladder, with image documentation. COMPARISON: [facility], US, ABDOMEN LTD, 12/26/2016, 14:41. [facility], CT, CT CHEST ABD PELVIS WO CON, 12/22/2016, 8:09. FINDINGS: Kidneys: Kidneys are normal in size. Right kidney measures 11.0 cm long; left kidney measures 12.2 cm long. Right renal cortical thickness is 1.4 cm; left renal cortical thickness is 1.4 cm. Renal cortical echotexture is normal. No hydronephrosis or nephrolithiasis. No suspicious solid mass lesions. Bladder: Pre-void bladder volume is 288 mL. Post-void residual is 190 mL. Pre -void images demonstrate no intraluminal masses or stones. On pre-void images, and ureteral jets are noted with color Doppler interrogation. (Of note, ureteral jets may not be detectable in up to 25% of cases due to insufficient differences in specific gravity between ureteral and bladder urine). Miscellaneous: No free pelvic fluid. Mild ascites. IMPRESSION: 1. No hydronephrosis. 2. Mild ascites. 3. Moderate 90 cc PVR recorded. Cardiac Echo Impression Echocardiogram Report Interpretation Summary The ejection fraction is estimated to be 35-40%. Septal motion is consistent with conduction abnormality. There is inferior wall severe hypokinesis. There is no significant valvular heart disease. Compared to the prior echo report on 2015, there is no significant change. Electronically signed by: Neville Caba on Reading Physician:12/27/2016 04:51 PM echo 12/27 The ejection fraction is estimated to be 35-40%. Septal motion is consistent with conduction abnormality. There is inferior wall severe hypokinesis. There is no significant valvular heart disease. Compared to the prior echo report on 2015, there is no significant change. Invasive Procedures None Other Diagnostics US RENAL SONOGRAM IMPRESSION: 1. No hydronephrosis. 2. Mild ascites. 3. Moderate 90 cc PVR recorded. 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 In 2015 he presented with intussusception and was diagnosed with mantle cell lymphoma involving terminal ileum. He was getting chemotherapy with Dr. Barreto and responding. He has been progressively feeling fatigued/generalized weakness for the last 3 weeks. He also noted that he is having progressive abdominal distention for the last 2 weeks. He was evaluated by Dr. Barreto and on repeat imaging was found to have dramatic deterioration with many large new masses in the abdominal cavity; one being about 9 cm in size in the central anterior pelvis; another one in the higher right hemipelvis; and some retroperitoneal nodes and thickening of the bowel as well as new lung mass in the right hilar area.He also was noted to have progressively worsening SHANNAN and hypercalcemia. He was given IV fluids at cancer Center and outpatient biopsy of new masses was being arranged . He continued to have the above symptoms and worsening SHANNAN and hypercalcemia which prompted referral to ED In the last 24 hours deteriorated sharply, and patient and family have made decision to transition to comfort care. Palliative med consulted to assist with care. Prior to visiting I reviewed records in detail, spoke w his nurse and oncologist. Sons departed for day- will speak with them on their return. Patient obtunded; resp agonal; actively dying on my initial eval. Hospital Course Dorian is unfortunate 71-year-old gentleman with past medical history of a typical lymphoblastic leukemia,mantle cell lymphoma of terminal ileum , nonischemic cardiomyopathy due to chemotherapy.Hypertension,JAk2 negative essential thrombocytosis #comfort care - discussed with patient and family wishes to transition to comfort care. Family agrees that this decision is consistent with patient's prior goals of care. Discussions throughout the day 12/29 with family regarding this decision. -comfort care order set in place. The patient appears to be actively dying at this point. Palliative Care has been involved in assisting with medication management. # Acute kidney failure,worsening . This is likely related primarily to acute tumor lysis syndrome. - # Acute hypercalcemia, worsening. Comfort care. # Acute spontaneous TLS . Comfort care. # acute hypoxic respiratory failure due to acute on chronic systolic CHF ,mx as above. Worsening. Comfort care. # Altered mental state (toxic encephalopathy) due SHANNAN,hypoxic failure ,patient lethargic today # Gram-positive bacteremia (septicemia versus contaminant). Will follow cultures. -1 out of 4 blood cultures growing gram-positive coccus which eventually turned out to be coag negative staph. initially empirically started on cefepime and vancomycin x1 dose -Repeat blood culture negative -Worsening leukocytosis noted,will keep cefepime but probably no infection here -initial Pro calcitonin 0.82. Source possibly pneumonia if at all . Port infection unlikely ..most likely contaminant # Mantle cell lymphoma ,Rapidly progressing , initially suspected transformation.repeat biopsy on current admission prelim report shows same mantle cell lymphoma per Dr Barreto. -underwent US guided biopsy today 12/27 -2 nd line Chemotherapy ibritumomab orally is ordered by son with copay of about $ 2000 today from [facility] and son says he was told medication will be available tomorrow. .Dr Barreto to decide when to start oral chemo per clinical state in the coming few days # JAK2 essential thrombocytosis -Continue aspirin 81 mg by mouth twice a day # anemia -due to lymphoma -f/u cbc in am Patient admitted under inpatient status with expected length of stay > 2 midnights for severity of present symptoms, complexities of treatment plan and risk for adverse events DNR /DNI POLST form filled ,patient signed,sons in agreement names his son Willie as POA ,tel [phone] Hospital course. The patient was admitted as outlined above. He developed acute hypoxic respiratory failure likely related to systolic heart failure as well as acute tumor lysis syndrome. The patient's family elected to pursue comfort care on the evening of the . The patient was essentially with anal respirations throughout the day of the . He at 1622 with family at the bedside. Patient was seen and examined on this day. Exam Test 12/26/16 14:35 12/26/16 14:40 12/26/16 16:19 12/26/16 23:27 Lactic Acid Level 1.3mmol/L (0.4-2.0) Troponin T 0.013ug/L (0.0-0.011) Prothrombin Time 11.3sec (8.1-12.5) Prothromb Time International Ratio 1.05ratio Hold Ko Top Tube Received (Received) Urine Ictotest Positive (Negative) Test 12/27/16 05:40 12/28/16 05:20 12/29/16 05:15 12/29/16 10:15 Metamyelocytes % 1% (0-0) Phosphorus Level 4.7mg/dL (2.5-4.9) Magnesium Level 2.3mg/dL (1.6-2.6) Hematology Comments Uric Acid 4.0mg/dL (2.6-7.2) Globulin (PEP) 2.2g/dL (2.2-3.9) Albumin/Globulin Ratio 1.0 (0.7-1.7) Iaxkm-7-Fyzpbprea 0.3g/dL (0.0-0.4) Totuq-5-Dntnynogw 0.9g/dL (0.4-1.0) Beta Globulins 0.8g/dL (0.7-1.3) Gamma Globulins 0.3g/dL (0.4-1.8) Serum Monoclonal Protein Not observedg/dL Protein Electrophoresis Comment Comment (.) Protein Electrophoresis Interpret Comment (.) Procalcitonin 0.82ng/mL (0.00-0.08) White Blood Count 21.7th/mm3 (3.8-10.1) Red Blood Count 3.26mil/mm3 (4.40-5.80) Hemoglobin 9.0g/dL (13.8-17.2) Hematocrit 29.3% (41.0-50.0) Mean Corpuscular Volume 89.9fL (81-100) Mean Corpuscular Hemoglobin 27.6pg (27.0-35.0) Mean Corpuscular Hemoglobin Concent 30.7% (32.0-37.0) Red Cell Distribution Width 19.5% (12.3-15.4) Platelet Count 485bil/L (150-400) Neutrophils (%) (Auto) 79% (40-74) Lymphocytes (%) (Auto) 6% (14-46) Monocytes (%) (Auto) 11% (4-12) Eosinophils (%) (Auto) 0% (0-5) Basophils (%) (Auto) 1% (0-3) Band Neutrophils % 3% (1-5) Sodium Level 136mEq/L (134-144) Potassium Level 5.4mEq/L (3.5-5.2) Chloride Level 99mEq/L (97-108) Carbon Dioxide Level 20mmol/L (18-29) Blood Urea Nitrogen 75mg/dL (8-27) Creatinine 3.43mg/dL (0.76-1.27) Estimat Glomerular Filtration Rate 19mL/min (>59) Glucose Level 104mg/dL (60-99) Calcium Level 11.6mg/dL (8.5-10.1) Total Bilirubin 0.3mg/dL (0.0-1.2) Aspartate Amino Transf (AST/SGOT) 92U/L (0-50) Alanine Aminotransferase (ALT/SGPT) 14U/L (0-44) Alkaline Phosphatase 98U/L (25-160) Total Protein 4.8g/dL (6.4-8.4) Albumin 2.9g/dL (3.4-5.0) Urine Color Yellow (YELLOW) Urine Appearance Slightly cloudy Urine pH 5.0 (5.0-8.0) Urine Specific [place] 1.021 (1.003-1.035) Urine Protein >300mg/dL (NEG,TRACE) Urine Glucose (UA) Negativemg/dL (NEGATIVE) Urine Ketones Tracemg/dL (NEGATIVE) Urine Occult Blood Large (NEGATIVE) Urine Nitrite Negative (NEGATIVE) Urine Bilirubin Negative (NEGATIVE) Urine Urobilinogen Normalmg/dL (NORMAL) Urine Leukocyte Esterase Small (NEGATIVE) Urine RBC 11-50/hpf (0-2) Urine WBC 6-10/hpf (0-5) Urine Epithelial Cells Moderate/hpf (NONE-MOD) Urine Crystals Amorphous urates (NONE Urine Bacteria Moderate/hpf (NONE-FEW) Urine Hyaline Casts >20/lpf (NONE) Urine Granular Casts None seen (NONE SEEN) Urine Waxy Casts None seen (NONE SEEN) Urine Red Blood Cell Casts None seen (NONE SEEN) Urine White Blood Cell Casts None seen (NONE SEEN) Urine Mucus Present (None Seen) Urine Trichomonas None seen (NONE SEEN) Urine Yeast None (NONE SEEN) Urinalysis Comment None Urine Culture Reflexed Indicated Urine Random Creatinine 167mg/dL (22-328) Urine Random Total Protein 253mg/dL (0-15) Urine Protein/Creatinine Ratio 1.51 Time spent 40 minutes including meeting with the family and answering questions as well as assessing the patient James Greer MD Dec 30, 2016 16:57
--- NOTE | 2016-12-30 18:03 | NUR ---
Passed Patients son told this RN patient did not seem to be breathing. Upon sucultation there were no heart/breathe sounds. Patient passed at 1622.
[2016-12-30] MEDS ORDERED: Vancomycin Serum Trough XX ONE (19:30)
== END 2016-12-30 16:28 | disposition expired | DRG 682 ==
LOC: SED 13:21 → MPC 16:54 → PCC 12-29 18:01
PROVIDERS: ADMIT Internal Medicine; ATTEND Internal Medicine
PROC: 0WBH3ZX Excision of Retroperitoneum, Percutaneous Approach, Diagnostic (ICD-10-PCS; principal; 2016-12-27)
DX: E88.3 Tumor lysis syndrome (principal); J96.21 Acute and chronic respiratory failure with hypoxia; I50.23 Acute on chronic systolic (congestive) heart failure; R78.81 Bacteremia; C83.19 Mantle cell lymphoma, extranodal and solid organ sites; E83.52 Hypercalcemia; N17.9 Acute kidney failure, unspecified; I10 Essential (primary) hypertension; D63.0 Anemia in neoplastic disease; Z87.891 Personal history of nicotine dependence; D47.3 Essential (hemorrhagic) thrombocythemia; Z51.5 Encounter for palliative care